=== PATIENT | male | born 1935 | race African-American/Black ===

== ENCOUNTER 2018-01-02 21:54 | Inpatient (IN) | payer MEDICARE, BC ==
[2018-01-02 22:47] LABS: #Basophils 0.1 thou/uL (0.0-0.2); #Eosinphils 0.3 thou/uL (0.0-0.7); #Monocytes 0.6 thou/uL (0.11-0.59); #Neutrophils 8.3 thou/uL (1.40-6.50); %Basophils 0.5 % (0.0-1.0); %Eosinophils 2.6 % (0.0-10.0); %Lymphocytes 17.4 % (21.0-51.0); %Monocytes 5.7 % (0.0-10.0); %Neutrophils 73.8 % (42.0-75.0); Hemoglobin 12.6 g/dL (14.0-18.0); Mean Corpuscular HGB CONC 31.5 g/dL (32.0-36.0); Mean Corpuscular Hemoglobin 23.6 pg (27.0-31.0); Mean Corpuscular Volume 74.8 fl (80.0-94.0); Platelet Count 237 thou/uL (130-400); RBC Distribution Width 14.1 % (11.5-14.5); Red Blood Cell (RBC) Count 5.33 mill/uL (4.70-6.10); White Blood Cell (WBC) Count 11.2 thou/uL (4.8-10.8)
[2018-01-02 22:58] LABS: ALT (SGPT) 20 U/L (8-55); AST (SGOT) 28 U/L (5-34); Alkaline Phosphatase 83 U/L (40-150); Anion Gap 14 mmol/L (10-20); BUN (Urea Nitrogen) 24 mg/dL (8.4-25.7); Bilirubin, Total 0.5 mg/dL (0.2-1.2); CK (CPK) 387 U/L (30-200); Calc. Creatinine Clearance 0 mL/min (70-130); Calcium 9.6 mg/dL (7.8-10.44); Carbon Dioxide 27 mmol/L (23-31); Chloride 99 mmol/L (98-107); Estimated GFR-MDRD Greater than 90; Globulin 3.7 g/dL (2.4-3.5); Glucose 110 mg/dL (83-110); Potassium 4.4 mmol/L (3.5-5.1); Protein, Total 7.7 g/dL (5.8-8.1); Sodium 136 mmol/L (136-145)
[2018-01-02 23:01] LABS: CKMB 3.6 ng/mL (0-6.6); Troponin I Less than 0.010 ng/mL (< 0.028)
--- NOTE | 2018-01-02 23:02 | CT ---
NONCONTRAST CT HEAD: 01/02/18 HISTORY: Altered mental status, confusion. COMPARISON: 03/09/17. FINDINGS: Again noted are chronic small vessel ischemic changes and cerebral volume loss, overall similar to th e prior exam. There is no evidence of an acute infarction, hemorrhage, mass effect, or midline shift . Ventricular system is normal in size, shape and position for the degree of sulcal atrophy. There rodriguez s been no significant interval change from the prior exam. IMPRESSION: 1. No acute intracranial abnormalities demonstrated. 2. Stable chronic small vessel ischemic changes and cerebral volume loss. POS: [facility]
[2018-01-02] MEDS ORDERED: Piperacillin/Tazobactam 3.375 GM in Sodium Chloride 0.9% 100 ML IVPB SCH (23:15)
[2018-01-03 00:05] LABS: Bilirubin Negative (Negative); Blood, Urine Negative (Negative); Clarity CLEAR (Clear); Glucose, Urine (Dipstick) Negative (Negative); Leukocyte Negative (Negative); Nitrite Negative (Negative); Protein, Urine (Dipstick) Negative (Neg-Trace); pH, Urine 7.5 (5.0-9.0)
[2018-01-03] MEDS ORDERED: Sodium Chloride 0.9% 1,000 ML IV SCH (04:00)
[2018-01-03] MEDS ORDERED: Ondansetron HCl/PF 4 MG/2 ML Vial IVP PRN (04:00)
[2018-01-03] MEDS ORDERED: Ondansetron ODT 4 MG TAB SL PRN (04:00)
[2018-01-03 05:02] VITALS: BMI 26.4
[2018-01-03] MEDS ORDERED: Clindamycin/D5W 900 MG in Premix Bag 1 BAG IVPB SCH (06:00)
[2018-01-03] MEDS: Piperacillin/Tazobactam 4.5 GM in Sodium Chloride 0.9% 100 ML IVPB SCH ×2 (06:21→12:52)
--- NOTE | 2018-01-03 09:40 | ULT ---
RIGHT UPPER EXTREMITY VENOUS DOPPLER: Date: 01/03/18 PROVIDED CLINICAL HISTORY: Right arm pain and swelling. FINDINGS: Dumont scale and color Doppler sonography with spectral analysis performed of the right jugular, subcla vian, axillary, brachial, and basilic veins. The proximal right cephalic vein is nonvisualized. The m id to distal right cephalic vein appear normal. IMPRESSION: No sonographic evidence for right upper extremity venous thrombosis. POS: [facility]
--- NOTE | 2018-01-03 09:47 | RAD ---
PORTABLE CHEST; Date: 01/03/18 PROVIDED CLINICAL HISTORY: Altered mental status. FINDINGS: Comparison with 03/11/17. Cardiac and mediastinal silhouette is within normal limits. Lungs appear clear. No pleural fluid or p neumothorax apparent. IMPRESSION: No evidence for an acute cardiopulmonary process. POS: [facility]
[2018-01-03] MEDS ORDERED: Vancomycin HCl 1 GM in Premix Bag 1 BAG IVPB SCH (13:00)
[2018-01-03] MEDS ORDERED: Guaifenesin DM 100-10/5 ML UDCUP PO PRN (13:26)
[2018-01-03] MEDS ORDERED: Acetaminophen 650 MG Suppository PR PRN (13:26)
[2018-01-03] MEDS: Sodium Chloride 0.9% 1,000 ML IV SCH (14:32)
--- NOTE | 2018-01-03 17:08 | HP ---
REASON FOR ADMISSION: Dehydration, acute encephalopathy, cellulitis. HISTORY OF PRESENT ILLNESS: Please note majority of this history is obtained by talking to ER physician and patient's daughter as the patient is not a very good historian. He was apparently brought to emergency room as he was getting more confused. This happened over the evening and Friday it got worse and patient was finally brought to emergency room. Per daughter, he was not complaining of any cough or expectoration. No fever at home. His right leg was more red and swollen than before. Normally, he is oriented, ambulates by himself and does all his activities of daily living. PAST MEDICAL/SURGICAL HISTORY: Hypertension, diabetes mellitus type 2, dyslipidemia, osteoarthritis, appendectomy, cervical decompressive laminectomy. PERSONAL HISTORY: Does not abuse alcohol or drugs. No history of smoking. FAMILY HISTORY: Cannot be obtained as patient is not oriented. REVIEW OF SYSTEMS: Cannot be obtained as patient is not oriented. CURRENT MEDICATIONS: Patient is on colchicine 0.6 mg p.o. twice daily, aspirin 81 mg p.o. daily, Colace 100 mg p.o. twice daily, lisinopril 10 mg daily, metformin 500 mg p.o. daily, metoprolol with hydrochlorothiazide extended release 1 tab daily. ALLERGIES: No known drug allergies. PHYSICAL EXAMINATION: GENERAL: The patient is an 82-year-old male who is currently not in any acute distress. VITAL SIGNS: Blood pressure 146/70, pulse 86 per minute, respiratory rate 18 per minute, temperature 99.5 degrees on arrival, saturating 96% on room air. NECK: Supple, no elevated JVD. HEENT: Eyes, extraocular muscles intact. Pupils reacting to light. Oral cavity, mucous membranes are dry. No exudates or congestion. CARDIOVASCULAR: S1, S2 heard. Regular rhythm. RESPIRATORY: Air entry 1+ bilaterally. No rales or rhonchi. ABDOMEN: Soft, bowel sounds heard. No tenderness, rigidity or guarding. EXTREMITIES: Right lower extremity, there are multiple abrasions seen and there is mild erythema to the leg. No calf tenderness. VASCULAR SYSTEM: Peripheral pulses 1+ bilateral, no ischemic ulcerations or gangrene. CENTRAL NERVOUS SYSTEM: No focal deficits seen. Patient has chronic right upper extremity weakness per family. He moves all the other three extremities well. No gross facial nerve deficits seen. Has small muscle atrophy of both hands. PSYCHIATRIC: Cannot be accurately assessed as patient is not oriented at present. No obvious hallucinations seen at bedside. LABORATORY AND X-RAY FINDINGS: CT brain done shows no acute intracranial abnormalities. Chest x-ray done shows no acute cardiopulmonary abnormalities. Right upper extremity ultrasound venous Doppler done shows no evidence of DVT. UA, there are no signs of infection. CK level is 387. Troponin I less than 0.01. Albumin is 4, BUN is 24, creatinine 0.9. Electrolytes stable. White count of 11, H&H 12 and 39, platelet count 237, MCV 74 with 73% neutrophils. EKG done shows normal sinus rhythm at 94 beats per minute. There is Q-wave seen in V1, V2, V3 with poor R-wave progression. CLINICAL IMPRESSION AND PLAN: The patient will be admitted to medical floor for acute encephalopathy, moderate dehydration likely right lower extremity cellulitis with temperature of 99.5 degrees on arrival. The patient will be on vancomycin and Zosyn and gentle hydration with normal saline at 80 mL per hour. Once patient is more awake, we will reinstitute all his home medications. We will also obtain PT, OT evaluations and speech evaluations as well. Blood and urine cultures have been obtained in the ER and will follow up on the results. We will continue to closely monitor him on medical floor. CODE STATUS: The patient is FULL CODE at present. MTDD
[2018-01-03] MEDS: Piperacillin/Tazobactam 3.375 GM in Sodium Chloride 0.9% 100 ML IVPB SCH ×2 (17:32→23:19)
[2018-01-03] MEDS: Acetaminophen 325 MG TAB PO PRN (20:03)
[2018-01-03] MEDS: Famotidine 20 MG TAB PO SCH (20:03)
[2018-01-03] MEDS: Docusate 100 MG CAP PO SCH (20:04)
[2018-01-03] MEDS ORDERED: traMADol HCl 50 MG TAB PO SCH (23:15)
[2018-01-04] MEDS: Sodium Chloride 0.9% 1,000 ML IV SCH ×2 (03:42→12:34)
[2018-01-04 05:02] LABS: #Basophils 0.1 thou/uL (0.0-0.2); #Eosinphils 0.6 thou/uL (0.0-0.7); #Monocytes 0.7 thou/uL (0.11-0.59); #Neutrophils 2.8 thou/uL (1.40-6.50); %Eosinophils 7.8 % (0.0-10.0); %Lymphocytes 42.5 % (21.0-51.0); %Monocytes 10.1 % (0.0-10.0); %Neutrophils 38.7 % (42.0-75.0); Mean Corpuscular HGB CONC 31.6 g/dL (32.0-36.0); Mean Corpuscular Hemoglobin 23.6 pg (27.0-31.0); Mean Corpuscular Volume 74.6 fl (80.0-94.0); Mean Platelet Volume 7.1 fL (7.4-10.4); Platelet Count 192 thou/uL (130-400); RBC Distribution Width 14.1 % (11.5-14.5); Red Blood Cell (RBC) Count 4.23 mill/uL (4.70-6.10); White Blood Cell (WBC) Count 7.1 thou/uL (4.8-10.8)
[2018-01-04] MEDS: Piperacillin/Tazobactam 3.375 GM in Sodium Chloride 0.9% 100 ML IVPB SCH ×3 (05:12→17:45)
[2018-01-04 05:22] LABS: Anion Gap 10 mmol/L (10-20); BUN (Urea Nitrogen) 21 mg/dL (8.4-25.7); Calc. Creatinine Clearance 62 mL/min (70-130); Calcium 8.6 mg/dL (7.8-10.44); Carbon Dioxide 25 mmol/L (23-31); Chloride 109 mmol/L (98-107); Estimated GFR-MDRD Greater than 90; Glucose 83 mg/dL (83-110); Potassium 3.8 mmol/L (3.5-5.1); Sodium 140 mmol/L (136-145)
[2018-01-04] MEDS ORDERED: Vancomycin HCl 1 GM in Premix Bag 1 BAG IVPB SCH (09:00)
[2018-01-04] MEDS: Enoxaparin Sodium 40 MG/0.4 ML SYRINGE SC SCH (10:13)
[2018-01-04] MEDS: Famotidine 20 MG TAB PO SCH ×2 (10:14→21:43)
[2018-01-04] MEDS: Docusate 100 MG CAP PO SCH ×2 (10:14→21:43)
--- NOTE | 2018-01-04 11:23 | PDOC.PN ---
- Subjective Encounter Start Date: 01/04/18 Encounter Start Time: 08:20 Subjective: awake, follows verbal stimuli -: is deconditioned and is unable to get up by self - Objective Resuscitation Status: Resuscitation Status FULL:Full Resuscitation MAR Reviewed: Yes Vital Signs & Weight: Vital Signs (12 hours) Temp Pulse Resp BP BP Pulse Ox 01/04/18 07:35 98.3 F 79 18 133/62 95 01/04/18 04:02 98.5 F 80 18 111/55 L 96 01/03/18 23:54 99.2 F 80 20 93/52 L 94 L Weight Weight 163 lb 6.4 oz I&O: 01/03/18 01/04/18 01/05/18 06:59 06:59 06:59 Intake Total 450 800 Output Total 0 Balance 450 800 Result Diagrams: 01/04/18 04:48 01/04/18 04:48 Additional Labs: Accuchecks 01/04/18 01/04/18 01/03/18 10:44 05:13 20:12 POC Glucose 143 H 89 148 H 01/03/18 01/03/18 16:30 11:06 POC Glucose 108 101 Phys Exam - Physical Examination HEENT: PERRLA, moist MMs Neck: no JVD, supple Respiratory: no wheezing, no rales Cardiovascular: RRR, no significant murmur Gastrointestinal: soft, non-tender, positive bowel sounds Musculoskeletal: no edema, pulses present Neurological: non-focal, moves all 4 limbs Psychiatric: A&O x 3 Dx/Plan (1) Acute encephalopathy Code(s): G93.40 - ENCEPHALOPATHY, UNSPECIFIED Status: Acute (2) Cellulitis of right leg Code(s): L03.115 - CELLULITIS OF RIGHT LOWER LIMB Status: Acute Comment: mild (3) Cervical radiculopathy Code(s): M54.12 - RADICULOPATHY, CERVICAL REGION Status: Chronic (4) Chronic anemia Code(s): D64.9 - ANEMIA, UNSPECIFIED Status: Chronic (5) Dementia Code(s): F03.90 - UNSPECIFIED DEMENTIA WITHOUT BEHAVIORAL DISTURBANCE Status: Chronic Qualifiers: Dementia type: unspecified type (6) HTN (hypertension) Code(s): I10 - ESSENTIAL (PRIMARY) HYPERTENSION Status: Chronic Qualifiers: Hypertension type: essential hypertension - Plan PT to mobilize as tolerated -: dc vanc, is on zosyn -: [place] cultures are -ve so far -: decrease iv fluids to 50/hr -: will need placement if family agrees * . Review of Systems - Medications/Allergies Allergies/Adverse Reactions: Allergies Allergy/AdvReac Type Severity Reaction Status Date / Time No Known Drug Allergies Allergy Verified 01/03/18 06:00 Medications: Current Medications Acetaminophen (Tylenol) 650 mg PO Q4H PRN PRN Reason: Headache/Fever or Pain Last Admin: 01/03/18 20:03 Dose: 650 mg Acetaminophen (Tylenol) 650 mg [place] Q4H PRN PRN Reason: Headache/Fever or Pain Docusate Sodium (Colace) 100 mg PO BID [facility] Last Admin: 01/04/18 10:14 Dose: 100 mg Enoxaparin Sodium (Lovenox) 40 mg SC 0900 [facility] Last Admin: 01/04/18 10:13 Dose: 40 mg Famotidine (Pepcid) 20 mg PO BID [facility] Last Admin: 01/04/18 10:14 Dose: 20 mg Guaifenesin/Dextromethorphan (Robitussin Dm) 15 ml PO Q4H PRN PRN Reason: Cough Sodium Chloride (Normal Saline 0.9%) 1,000 mls @ 80 mls/hr IV .[id number] [facility] Last Admin: 01/04/18 03:42 Dose: 1,000 mls Piperacillin Sod/Tazobactam (Sod 3.375 gm/ Sodium Chloride) 100 mls @ 200 mls/ hr IVPB Q6HR [facility] Last Admin: 01/04/18 05:12 Dose: 100 mls Vancomycin HCl 1 gm/ Device 200 mls @ 200 mls/hr IVPB DAILY [facility] Last Admin: 01/04/18 10:13 Dose: 200 mls
[2018-01-05] MEDS: Acetaminophen 325 MG TAB PO PRN ×2 (00:10→21:06)
[2018-01-05] MEDS: Piperacillin/Tazobactam 3.375 GM in Sodium Chloride 0.9% 100 ML IVPB SCH ×3 (00:10→12:31)
[2018-01-05] MEDS: Sodium Chloride 0.9% 1,000 ML IV SCH (00:11)
[2018-01-05] MEDS: Enoxaparin Sodium 40 MG/0.4 ML SYRINGE SC SCH (08:00)
[2018-01-05] MEDS: Famotidine 20 MG TAB PO SCH ×2 (08:00→21:03)
[2018-01-05] MEDS: Docusate 100 MG CAP PO SCH ×3 (08:00→21:04)
--- NOTE | 2018-01-05 12:25 | PDOC.PN ---
- Subjective Encounter Start Date: 01/05/18 Encounter Start Time: 12:00 Subjective: awake, not in distress - Objective MAR Reviewed: Yes Vital Signs & Weight: Vital Signs (12 hours) Temp Pulse Resp BP BP Pulse Ox 01/05/18 08:00 98.1 F 74 16 97 01/05/18 07:47 98.1 F 74 16 153/71 H 97 01/05/18 04:00 97.9 F 71 18 149/81 H 99 01/05/18 01:25 98.6 F 76 20 94 L 01/05/18 01:20 98.6 F 76 20 133/76 94 L Weight Admit Weight 163 lb 6.4 oz Weight 163 lb 6.4 oz I&O: 01/04/18 01/05/18 01/06/18 06:59 06:59 06:59 Intake Total 300 60 Balance 300 60 Result Diagrams: 01/04/18 04:48 01/04/18 04:48 Additional Labs: Accuchecks 01/05/18 01/04/18 01/04/18 05:01 22:47 17:17 POC Glucose 98 135 H 154 H Phys Exam - Physical Examination HEENT: PERRLA, moist MMs Neck: no JVD, supple Respiratory: no wheezing, no rales Cardiovascular: RRR, no significant murmur Gastrointestinal: soft, non-tender, positive bowel sounds Musculoskeletal: no edema, pulses present Neurological: non-focal moves all extremities except right UE which is chronic Dx/Plan (1) Acute encephalopathy Code(s): G93.40 - ENCEPHALOPATHY, UNSPECIFIED Status: Resolved (2) Cellulitis of right leg Code(s): L03.115 - CELLULITIS OF RIGHT LOWER LIMB Status: Acute Comment: mild (3) Cervical radiculopathy Code(s): M54.12 - RADICULOPATHY, CERVICAL REGION Status: Chronic (4) Chronic anemia Code(s): D64.9 - ANEMIA, UNSPECIFIED Status: Chronic (5) Dementia Code(s): F03.90 - UNSPECIFIED DEMENTIA WITHOUT BEHAVIORAL DISTURBANCE Status: Chronic Qualifiers: Dementia type: unspecified type (6) HTN (hypertension) Code(s): I10 - ESSENTIAL (PRIMARY) HYPERTENSION Status: Chronic Qualifiers: Hypertension type: essential hypertension - Plan Has chronic physical deconditioning -: unable to reach family with any of the phone # listed on [facility] -: dc plan is to either home with HH/snf per family advice -: oral levaquin, home meds for htn * . Review of Systems - Medications/Allergies Allergies/Adverse Reactions: Allergies Allergy/AdvReac Type Severity Reaction Status Date / Time No Known Drug Allergies Allergy Verified 01/03/18 06:00 Medications: Current Medications Acetaminophen (Tylenol) 650 mg PO Q4H PRN PRN Reason: Headache/Fever or Pain Last Admin: 01/05/18 00:10 Dose: 650 mg Acetaminophen (Tylenol) 650 mg [place] Q4H PRN PRN Reason: Headache/Fever or Pain Docusate Sodium (Colace) 100 mg PO BID [facility] Last Admin: 01/05/18 08:00 Dose: 100 mg Enoxaparin Sodium (Lovenox) 40 mg SC 0900 [facility] Last Admin: 01/05/18 08:00 Dose: 40 mg Famotidine (Pepcid) 20 mg PO BID [facility] Last Admin: 01/05/18 08:00 Dose: 20 mg Guaifenesin/Dextromethorphan (Robitussin Dm) 15 ml PO Q4H PRN PRN Reason: Cough Piperacillin Sod/Tazobactam (Sod 3.375 gm/ Sodium Chloride) 100 mls @ 200 mls/ hr IVPB Q6HR [facility] Last Admin: 01/05/18 05:51 Dose: 100 mls Sodium Chloride (Normal Saline 0.9%) 1,000 mls @ 50 mls/hr IV .Q20H [facility] Last Admin: 01/05/18 00:11 Dose: 1,000 mls
[2018-01-05] MEDS: Colchicine 0.6 MG TAB PO SCH (21:03)
[2018-01-06] MEDS ORDERED: metFORMIN 500 MG TAB PO SCH (08:00)
[2018-01-06] MEDS ORDERED: METOPROLOL SU PO SCH (09:00)
[2018-01-06] MEDS ORDERED: Lisinopril 10 MG TAB PO SCH (09:00)
[2018-01-06] MEDS ORDERED: Saccharomyces boulardii 250 MG CAP PO SCH (09:00)
[2018-01-06] MEDS ORDERED: HYDROCHLOROTHIAZ PO SCH (09:00)
[2018-01-06] MEDS ORDERED: Hydrochlorothiazide 25 MG TAB PO SCH (09:00)
[2018-01-06] MEDS ORDERED: [UNRECOGNIZED DRUG - OTHER] PO SCH (09:00)
[2018-01-06] MEDS: Famotidine 20 MG TAB PO SCH (09:38)
[2018-01-06] MEDS: Colchicine 0.6 MG TAB PO SCH (09:38)
[2018-01-06] MEDS: Enoxaparin Sodium 40 MG/0.4 ML SYRINGE SC SCH (09:39)
[2018-01-06] MEDS: Docusate 100 MG CAP PO SCH (09:39)
[2018-01-06 11:10] VITALS: BP 157/77; TEMP 98.7
--- NOTE | 2018-01-06 11:42 | PDOC.PN ---
- Subjective Encounter Start Date: 01/06/18 Encounter Start Time: 08:50 Subjective: awake, not in distress - Objective MAR Reviewed: Yes Vital Signs & Weight: Vital Signs (12 hours) Temp Pulse Resp BP BP Pulse Ox 01/06/18 11:09 98.7 F 99 16 157/77 H 95 01/06/18 09:40 150/79 H 01/06/18 08:00 98.3 F 93 16 96 01/06/18 07:45 98.3 F 93 16 149/71 H 01/06/18 00:38 99.4 F 103 H 20 177/78 H 96 Weight Admit Weight 163 lb 6.4 oz Weight 163 lb 6.4 oz I&O: 01/05/18 01/06/18 01/07/18 06:59 06:59 06:59 Intake Total 60 1420 Balance 60 1420 Result Diagrams: 01/04/18 04:48 01/04/18 04:48 Additional Labs: Accuchecks 01/06/18 01/06/18 01/05/18 05:09 01:04 20:18 POC Glucose 109 135 H 119 H 01/05/18 01/05/18 16:29 12:05 POC Glucose 109 97 Phys Exam - Physical Examination HEENT: PERRLA, moist MMs Neck: no JVD, supple Respiratory: no wheezing, no rales Cardiovascular: RRR, no significant murmur Gastrointestinal: soft, non-tender, positive bowel sounds Musculoskeletal: no edema, pulses present at baseline, no ac focal signs Dx/Plan (1) Acute encephalopathy Code(s): G93.40 - ENCEPHALOPATHY, UNSPECIFIED Status: Resolved (2) Cellulitis of right leg Code(s): L03.115 - CELLULITIS OF RIGHT LOWER LIMB Status: Acute Comment: mild (3) Cervical radiculopathy Code(s): M54.12 - RADICULOPATHY, CERVICAL REGION Status: Chronic (4) Chronic anemia Code(s): D64.9 - ANEMIA, UNSPECIFIED Status: Chronic (5) Dementia Code(s): F03.90 - UNSPECIFIED DEMENTIA WITHOUT BEHAVIORAL DISTURBANCE Status: Chronic Qualifiers: Dementia type: unspecified type (6) HTN (hypertension) Code(s): I10 - ESSENTIAL (PRIMARY) HYPERTENSION Status: Chronic Qualifiers: Hypertension type: essential hypertension - Plan hemostable -: may dc home with HH per families wishes, they dont want placement -: levaquin for 4 more days * . Review of Systems - Medications/Allergies Allergies/Adverse Reactions: Allergies Allergy/AdvReac Type Severity Reaction Status Date / Time No Known Drug Allergies Allergy Verified 01/03/18 06:00 Medications: Current Medications Acetaminophen (Tylenol) 650 mg PO Q4H PRN PRN Reason: Headache/Fever or Pain Last Admin: 01/05/18 21:06 Dose: 650 mg Acetaminophen (Tylenol) 650 mg [place] Q4H PRN PRN Reason: Headache/Fever or Pain Aspirin (Aspirin Chewable) 81 mg PO DAILY [facility] Last Admin: 01/06/18 09:38 Dose: 81 mg Colchicine (Colcrys) 0.6 mg PO BID [facility] Last Admin: 01/06/18 09:38 Dose: 0.6 mg Docusate Sodium (Colace) 100 mg PO BID [facility] Last Admin: 01/06/18 09:39 Dose: Not Given Enoxaparin Sodium (Lovenox) 40 mg SC 0900 [facility] Last Admin: 01/06/18 09:39 Dose: 40 mg Famotidine (Pepcid) 20 mg PO BID [facility] Last Admin: 01/06/18 09:38 Dose: 20 mg Guaifenesin/Dextromethorphan (Robitussin Dm) 15 ml PO Q4H PRN PRN Reason: Cough Hydrochlorothiazide (Hydrochlorothiazide) 12.5 mg PO DAILY [facility] Last Admin: 01/06/18 09:38 Dose: 12.5 mg Levofloxacin (Levaquin) 500 mg PO 0600 [facility] Last Admin: 01/06/18 05:30 Dose: 500 mg Lisinopril (Zestril) 10 mg PO DAILY [facility] Last Admin: 01/06/18 09:40 Dose: 10 mg Metformin HCl (Glucophage) 500 mg PO QAM-WM [facility] Last Admin: 01/06/18 09:40 Dose: 500 mg Metoprolol Succinate (Toprol Xl) 100 mg PO DAILY [facility] Last Admin: 01/06/18 09:38 Dose: 100 mg Saccharomyces Boulardii (Florastor) 250 mg PO DAILY [facility] Last Admin: 01/06/18 09:38 Dose: 250 mg
--- NOTE | 2018-01-07 09:39 | DIS ---
DATE OF ADMISSION: 01/03/2018 DATE OF DISCHARGE: 01/06/2018 DISCHARGE DISPOSITION: To home with home health. PRIMARY DISCHARGE DIAGNOSES: Acute encephalopathy, resolved; right leg cellulitis, resolving which i s very mild. SECONDARY DISCHARGE DIAGNOSES: History of cervical radiculopathy with chronic weakness, chronic anem ia, dementia, hypertension. PROCEDURES DONE DURING HOSPITALIZATION: The patient has had right upper extremity venous Doppler don e, which did not show any thrombus. CT brain showed no acute intracranial abnormalities. Chest x-ra y done showed no acute cardiopulmonary process. Blood cultures x2, no growth. Urine culture, no parish wth. H&H was 10 and 31, platelet count 192, MCV 74, BUN and creatinine was 21 and 0.9. One set of c ardiac enzymes are negative. DISCHARGE MEDICATIONS: Levaquin 500 mg p.o. daily for another 4 days, aspirin 81 mg p.o. daily, colc hicine 0.6 mg p.o. twice daily p.r.n. for gout flareup, Colace 100 mg p.o. twice daily, lisinopril 10 mg p.o. daily, metformin 500 mg p.o. daily, metoprolol with hydrochlorothiazide 100/12.5 mg p.o. johnny ly, Florastor 250 mg p.o. daily for 10 days. ALLERGIES: No known drug allergies. DISCHARGE PLAN: The patient is being discharged home with home health as his family has declined otilio cement. BRIEF COURSE DURING HOSPITALIZATION: Patient initially got admitted on the after family brought him for altered mental state. He was found to be in mild to moderate dehydration with mild right lo wer extremity cellulitis. Initial workup including CT brain, chest x-ray, and right upper extremity Dopplers were all negative. The patient was gently hydrated and was placed on Zosyn and vancomycin i nitially. He had a temperature of 99.5 degrees on arrival. Twenty-four hours into hospitalization, patient's encephalopathy started to resolve. At the time of discharge, he is at his baseline cogniti ve status. Please note, the patient has underlying dementia. Patient is chronically deconditioned d ue to cervical radiculopathy. Family was offered placement, but they have declined and would like to take him home with home health, PT and nursing. This is being arranged with case management. Sajan dial see a [id number] documentation for the day of discharge. He needs to continue Levaquin for anoth er 4 days.
== END 2018-01-06 16:47 | disposition home health service (06) | DRG 602 ==
LOC: ERS 21:54 → 2SE 01-03 03:39 → OBSVTOIN 01-03 13:26 → T4-B 01-05 01:26
PROVIDERS: ADMIT Internal Medicine; ATTEND Internal Medicine
DX: L03.115 Cellulitis of right lower limb (principal); G93.40 Encephalopathy, unspecified; D64.9 Anemia, unspecified; E11.9 Type 2 diabetes mellitus without complications; E86.0 Dehydration; F03.90 Unspecified dementia, unspecified severity, without behavioral disturbance, psychotic disturbance, mood disturbance, and anxiety; I10 Essential (primary) hypertension; M54.12 Radiculopathy, cervical region
CPT/HCPCS: 36415; 36416; 51701; 70450; 71045; 80048; 80053; 81003; 82553; 84484; 85025; 87040; 87086; 93005; 96365; 96366; 96367; G8978-GP-CL; G8979-GP-CJ; G8987-GO-CM; G8988-GO-CK; G8996-GN-CI; G8997-GN-CH; J1650; J2543; J3370; J3490; J7050

== ENCOUNTER 2018-04-16 15:25 | Inpatient (IN) | payer MEDICARE, BC ==
[2018-04-16 16:49] LABS: Hemoglobin 8.8 g/dL (14.0-18.0); Mean Corpuscular HGB CONC 30.6 g/dL (32.0-36.0); Mean Corpuscular Hemoglobin 22.8 pg (27.0-31.0); Mean Corpuscular Volume 74.7 fL (78.0-98.0); Mean Platelet Volume 6.4 fL (7.4-10.4); Platelet Count 425 thou/uL (130-400); RBC Distribution Width 13.7 % (11.5-14.5); Red Blood Cell (RBC) Count 3.85 mill/uL (4.70-6.10); White Blood Cell (WBC) Count 20.6 thou/uL (4.8-10.8)
[2018-04-16 17:03] LABS: ALT (SGPT) 30 U/L (8-55); AST (SGOT) 31 U/L (5-34); Albumin 3.1 g/dL (3.4-4.8); Alkaline Phosphatase 73 U/L (40-150); Anion Gap 17 mmol/L (10-20); BUN (Urea Nitrogen) 31 mg/dL (8.4-25.7); Bilirubin, Total 0.4 mg/dL (0.2-1.2); Calc. Creatinine Clearance 0 mL/min (70-130); Calcium 9.2 mg/dL (7.8-10.44); Carbon Dioxide 21 mmol/L (23-31); Chloride 103 mmol/L (98-107); Estimated GFR-MDRD Greater than 90; Globulin 3.8 g/dL (2.4-3.5); Glucose 195 mg/dL (83-110); Potassium 3.4 mmol/L (3.5-5.1); Protein, Total 6.9 g/dL (5.8-8.1); Sodium 138 mmol/L (136-145)
[2018-04-16 17:18] LABS: Anisocytosis SLIGHT = 6-15 cells (100X) (0-5/hpf); Band 2 % (5-11); Eosinophils 1 % (0-10); Hypochromia SLIGHT = 6-15 cells (100X) (0-5/hpf); Lymphocytes 14 % (21-51); MDiff Complete? YES; Microcytosis SLIGHT = 6-15 cells (100X) (0-5/hpf); Monocytes 5 % (0-10); Neutrophil 78 % (42-75); PLT Morphology Comment Appears Increased
[2018-04-16] MEDS ORDERED: Piperacillin/Tazobactam 3.375 GM VIAL ONE (17:56)
[2018-04-16] MEDS ORDERED: Ondansetron HCl/PF 4 MG/2 ML Vial IVP PRN (20:04)
[2018-04-16] MEDS ORDERED: VANCOMYCIN IVPB PRN (20:09)
[2018-04-16] MEDS ORDERED: HumaLOG 300 UNITS/3 ML VIAL SC PRN (21:18)
[2018-04-16] MEDS ORDERED: Dextrose 50% Abboject 50 ML SYRINGE SLOW IVP PRN (21:18)
[2018-04-16] MEDS ORDERED: Dextrose 5% in Water 1,000 ML IV PRN (21:18)
[2018-04-16] MEDS: Docusate 100 MG CAP PO SCH (21:33)
[2018-04-16] MEDS: Sodium Chloride 0.9% 1,000 ML IV SCH (21:33)
[2018-04-16] MEDS: Colchicine 0.6 MG TAB PO SCH (21:33)
[2018-04-16 22:07] LABS: Hemoglobin 9.5 g/dL (14.0-18.0)
[2018-04-16 23:28] VITALS: BMI 24.7
--- NOTE | 2018-04-16 23:36 | HP ---
CODE STATUS: FULL CODE. TIME OF EVALUATION: 7:30 p.m. CHIEF COMPLAINT: Fever and chills. HISTORY OF PRESENT ILLNESS: This is an 83-year-old male patient with past medical history being bedb ound due to back surgeries and spinal stenosis, the patient's family is reporting that he has had cesia e pressure ulcers for a few weeks now, but once located bilaterally in both hips, they had been getti ng worse, the patient has mild odor, patient has dark skin on top of the ulcers, the symptoms have be en triggered by possible infection of the decubitus ulcers, there are no alleviating factors. The naila eric also has another pressure ulcer on the right heel. They reported that they were getting some h ome health a few weeks ago, but the home health nurse stopped coming to the house. As now, the patie nt has a history of diabetes. REVIEW OF SYSTEMS: They were reviewed with the family members at bedside, also with the patient. Co nstitutional: The patient had fever, chills, generalized weakness. Respiratory: No cough, sputum p roduction, shortness of breath. Cardiovascular: No chest pain, palpitation, shortness of breath. G astrointestinal: No nausea, vomiting, diarrhea or abdominal pain. [employer]: No dizziness, headache or f eeling lightheaded. Genitourinary: No burning on urination. Extremities: The patient has baseline mobility, there is a pressure ulcer in bilateral hips in the lateral areas, also on the sacral area, all other systems were reviewed and negative except for the findings mentioned above. PAST MEDICAL HISTORY: The patient has a history of type 2 diabetes, hypertension, osteoarthritis, go ut. PAST SURGICAL HISTORY: Appendectomy, spinal surgery, cervical surgery, lumbar surgery. FAMILY HISTORY: Patient's father has history of CHF. SOCIAL HISTORY: No alcohol, no drugs. No smoking. The patient lives with family. ALLERGIES: No known drug allergy reported. MEDICATIONS: Aspirin, metoprolol, metformin. PHYSICAL EXAMINATION: VITAL SIGNS: On presentation, blood pressure 92/52 with heart rate 112, respiratory rate 30, tempera ture 98.6, pain 0/10, oxygen saturation 94% on room air. Blood pressure improved after initial treat ment. GENERAL APPEARANCE: The patient is alert, not in acute distress. HEAD AND EYES: Normal conjunctivae. Moist oral mucosa, anicteric. NECK: No JVD. RESPIRATORY: Bilateral air entry. No rales, no wheezing. Symmetrical expansion. CARDIOVASCULAR: Normal rate, regular rhythm, no murmurs, no gallop. No edema. ABDOMEN: Soft, normal bowel sounds. MUSCULOSKELETAL: Baseline range of motion. The patient is bedbound, no unusual changes reported by family. SKIN: Warm and intact. No perineal rash except for bilateral hip area. Decubitus pressure ulcers, they are nonstageable, with black scar on the surface, surrounded by redness. Patient also has simil ar wound on the sacral area. There is another pressure ulcer on the right heel. NEUROLOGIC: Baseline sensorium, no evidence of any new focal weakness, weight loss baseline speech. Cranial nerve, sensory intact. PSYCHIATRIC: The patient is in a good mood, known CAD. LABORATORY DATA: Labs are reviewed. The patient has white count 20, RBC 3.85, hemoglobin 8.8 with M CV 74, platelet count 125. Chemistry 138, potassium 3.4, chloride 103, carbon dioxide 21, anion gap 17, BUN 31, creatinine 0.8. Lactic acid initially was 3.4. Repeat lactic acid was 6, albumin 3.1, g lobulin 3.8, albumin globulin ratio 0.8. EKG as discussed with the ER physician, sinus tachycardia with multifocal PVCs, some T-wave inversion in the lateral leads, no other acute findings. ASSESSMENT AND PLAN: The patient was placed in the hospital for the following medical condition. 1. Severe sepsis. The patient came in with low blood pressure, lactic acidosis, leukocytosis, tachy cardia, source most likely is a wound infection. The patient has been started on antibiotics and ashley l continue for now. We will follow cultures, will adjust the treatment as needed. 2. Multiple pressure ulcers, likely due to long-term bedbound status, will need wound care for asses sment, might need surgery for debridement, wounds are nonstageable. On trailing antibiotics. Follow wound care/surgery recommendations. 3. Hypokalemia. Potassium 3.4, this is mild, will replace electrolytes as needed. 4. Lactic acidosis secondary to severe sepsis, we will treat underlying condition. Hydration has be en started, however, we are limited since the patient has a history of congestive heart failure. Nee d to find the right balance for it. 5. Type 2 diabetes that is uncontrolled. The patient has a blood sugar of 195, we will place the pa tient on sliding scale. Carb controlled diet is advised. 6. Microcytic anemia. This seems to be chronic, patient has been on iron in the home that will cont inue for now. We will monitor hemoglobin, just . There is a drop in hemoglobin from 10 to 8.8 since last admission. We will repeat hemoglobin and trend. 7. Deep venous thrombosis prophylaxis.
[2018-04-16] MEDS: Piperacillin/Tazobactam 3.375 GM in Sodium Chloride 0.9% 100 ML IVPB SCH (23:43)
[2018-04-17] MEDS: Sodium Chloride 0.9% 1,000 ML IV SCH (04:19)
[2018-04-17 05:02] LABS: Hemoglobin 8.2 g/dL (14.0-18.0)
[2018-04-17 05:05] LABS: #Basophils 0.2 thou/uL (0.0-0.2); #Eosinphils 0.3 thou/uL (0.0-0.7); #Lymphocytes 4.5 thou/uL (1.20-3.40); #Monocytes 1.3 thou/uL (0.11-0.59); #Neutrophils 13.9 thou/uL (1.40-6.50); %Basophils 1.1 % (0.0-1.0); %Eosinophils 1.4 % (0.0-10.0); %Lymphocytes 22.4 % (21.0-51.0); %Monocytes 6.2 % (0.0-10.0); %Neutrophils 68.9 % (42.0-75.0); Hemoglobin 8.2 g/dL (14.0-18.0); Mean Corpuscular HGB CONC 31.1 g/dL (32.0-36.0); Mean Corpuscular Volume 74.2 fL (78.0-98.0); Mean Platelet Volume 6.4 fL (7.4-10.4); Platelet Count 409 thou/uL (130-400); RBC Distribution Width 13.6 % (11.5-14.5); Red Blood Cell (RBC) Count 3.54 mill/uL (4.70-6.10); White Blood Cell (WBC) Count 20.1 thou/uL (4.8-10.8)
[2018-04-17] MEDS: Piperacillin/Tazobactam 3.375 GM in Sodium Chloride 0.9% 100 ML IVPB SCH ×3 (05:09→17:03)
[2018-04-17 05:15] LABS: Anion Gap 14 mmol/L (10-20); BUN (Urea Nitrogen) 28 mg/dL (8.4-25.7); Calc. Creatinine Clearance 69 mL/min (70-130); Calcium 8.8 mg/dL (7.8-10.44); Carbon Dioxide 23 mmol/L (23-31); Chloride 105 mmol/L (98-107); Estimated GFR-MDRD Greater than 90; Glucose 174 mg/dL (83-110); Potassium 3.2 mmol/L (3.5-5.1); Sodium 139 mmol/L (136-145)
[2018-04-17] MEDS: Colchicine 0.6 MG TAB PO SCH ×2 (08:33→21:13)
[2018-04-17] MEDS: Docusate 100 MG CAP PO SCH ×2 (08:34→21:13)
[2018-04-17] MEDS: Enoxaparin Sodium 40 MG/0.4 ML SYRINGE SC SCH (08:34)
[2018-04-17] MEDS: Acetaminophen 325 MG TAB PO PRN (08:36)
[2018-04-17] MEDS: Saccharomyces boulardii 250 MG CAP PO SCH (08:36)
[2018-04-17] MEDS ORDERED: Lisinopril 10 MG TAB PO SCH (09:00)
[2018-04-17] MEDS ORDERED: Prevnar 13-Val Conj/PF 0.5 ML SYRINGE IM ONE (09:00)
[2018-04-17 09:49] LABS: Hemoglobin 7.6 g/dL (14.0-18.0)
[2018-04-17] MEDS ORDERED: Chloraseptic Spray 180 ml Bottle PO PRN (10:51)
[2018-04-17] MEDS ORDERED: Loratadine 10 MG TAB PO PRN (10:51)
[2018-04-17] MEDS ORDERED: Milk Of Magnesia 30 ML UDCUP PO PRN (10:51)
[2018-04-17] MEDS ORDERED: hydrALAZINE 20 MG/ML VIAL SLOW IVP PRN (10:51)
[2018-04-17] MEDS ORDERED: Artificial Tears 18 DROP/0.9 ML EA EYE PRN (10:51)
[2018-04-17] MEDS ORDERED: Loperamide HCl 2 MG CAP PO PRN (10:51)
[2018-04-17] MEDS ORDERED: Ondansetron ODT 4 MG TAB PO PRN (10:51)
[2018-04-17] MEDS ORDERED: Mag-Al 1200 mg/1200 mg/30 ML UDCUP PO PRN (10:51)
[2018-04-17] MEDS ORDERED: Eucerin (Mineral Oil/Petrolatum,White) 30 gm Jar TOP PRN (10:51)
[2018-04-17] MEDS ORDERED: Diabetic Tussin 200 MG/10 ML UDCUP PO PRN (10:51)
[2018-04-17] MEDS ORDERED: Sodium Chloride 0.65% Nasal 44 ML BOT EA NARE PRN (10:51)
--- NOTE | 2018-04-17 10:52 | PDOC.PN ---
- Subjective Encounter Start Date: 04/17/18 Encounter Start Time: 08:40 -: old records requested/rev Patient seen and examined for decubitus ulcer. No overnight events - Objective Resuscitation Status: Resuscitation Status FULL:Full Resuscitation MAR Reviewed: Yes Vital Signs & Weight: Vital Signs (12 hours) Temp Pulse Resp BP BP Pulse Ox 04/17/18 10:46 18 98 04/17/18 08:35 94/57 L 04/17/18 07:54 98.8 F 95 32 H 93/58 L 93 L 04/17/18 06:26 100.1 F H 100 18 98/58 L 99 04/17/18 00:15 99.0 F 114 H 16 142/72 H 98 I&O: 04/16/18 04/17/18 04/18/18 06:59 06:59 06:59 Intake Total 829 Balance 829 Result Diagrams: 04/17/18 09:39 04/17/18 03:52 Additional Labs: Accuchecks 04/17/18 05:19 POC Glucose 174 H Phys Exam - Physical Examination Constitutional: NAD chronically ill HEENT: PERRLA, moist MMs, sclera anicteric Neck: no JVD, supple Respiratory: no wheezing, no rales, no rhonchi Cardiovascular: RRR, no significant murmur, no rub Gastrointestinal: soft, non-tender, no distention, positive bowel sounds Musculoskeletal: no edema, pulses present Neurological: moves all 4 limbs Lymphatic: no nodes Psychiatric: normal affect Skin: no rash, normal turgor Deviation from normal: decubitus with dressing, please see wct finding for details Dx/Plan (1) Hypokalemia Code(s): E87.6 - HYPOKALEMIA Status: Acute (2) Lactic acidosis Code(s): E87.2 - ACIDOSIS Status: Acute (3) Severe sepsis Code(s): A41.9 - SEPSIS, UNSPECIFIED ORGANISM; R65.20 - SEVERE SEPSIS WITHOUT SEPTIC SHOCK Status: Acute (4) Cervical radiculopathy Code(s): M54.12 - RADICULOPATHY, CERVICAL REGION Status: Chronic (5) Dementia Code(s): F03.90 - UNSPECIFIED DEMENTIA WITHOUT BEHAVIORAL DISTURBANCE Status: Chronic (6) Gout Code(s): M10.9 - GOUT, UNSPECIFIED Status: Chronic Qualifiers: (7) HTN (hypertension) Code(s): I10 - ESSENTIAL (PRIMARY) HYPERTENSION Status: Chronic Qualifiers: (8) Microcytic anemia Code(s): D50.9 - IRON DEFICIENCY ANEMIA, UNSPECIFIED Status: Chronic (9) Pressure ulcer of ischium Code(s): L89.309 - PRESSURE ULCER OF UNSPECIFIED BUTTOCK, UNSPECIFIED STAGE Status: Chronic (10) Pressure ulcer of sacral region, stage 3 Code(s): L89.153 - PRESSURE ULCER OF SACRAL REGION, STAGE 3 Status: Chronic - Plan cont current plan of care, continue antibiotics * continue wound care * continue empiric iv vancomycin and zosyn * continue IVF with potassium * selected home medication * follow up on culture result * add jono bid, ensure tid. * add florastor * check ferritin tomorrow Review of Systems - Review of Systems Eyes: negative: Pain, Vision Change, Conjunctivae Inflammation, Eyelid Inflammation, Redness, Other ENT: negative: Ear Pain, Ear Discharge, Nose Pain, Nose Discharge, Nose Congestion, Mouth Pain, Mouth Swelling, Throat Pain, Throat Swelling, Other Respiratory: negative: Cough, Dry, Shortness of Breath, Hemoptysis, SOB with Excertion, Pleuritic Pain, Sputum, Wheezing Cardiovascular: negative: chest pain, palpitations, orthopnea, paroxysmal nocturnal dyspnea, edema, light headedness, other Gastrointestinal: negative: Nausea, Vomiting, Abdominal Pain, Diarrhea, Constipation, Melena, Hematochezia, Other Genitourinary: negative: Dysuria, Frequency, Incontinence, Hematuria, Retention , Other Musculoskeletal: negative: Neck Pain, Shoulder Pain, Arm Pain, Back Pain, Hand Pain, Leg Pain, Foot Pain, Other Other: not reliable due to his current cognitive level of deficit - Medications/Allergies Allergies/Adverse Reactions: Allergies Allergy/AdvReac Type Severity Reaction Status Date / Time No Known Drug Allergies Allergy Verified 04/16/18 22:26 Medications: Current Medications Acetaminophen (Tylenol) 650 mg PO Q4H PRN PRN Reason: Headache/Fever or Pain Last Admin: 04/17/18 08:36 Dose: 650 mg Aspirin (Aspirin Chewable) 81 mg PO DAILY [facility] Last Admin: 04/17/18 08:33 Dose: 81 mg Colchicine (Colcrys) 0.6 mg PO BID [facility] Last Admin: 04/17/18 08:33 Dose: 0.6 mg Dextrose/Water (Dextrose 50%) 25 gm SLOW IVP PRN PRN PRN Reason: Hypoglycemia Docusate Sodium (Colace) 100 mg PO BID [facility] Last Admin: 04/17/18 08:34 Dose: 100 mg Enoxaparin Sodium (Lovenox) 40 mg SC 0900 [facility] Last Admin: 04/17/18 08:34 Dose: 40 mg Glucagon (Glucagon) 1 mg IM PRN PRN PRN Reason: Hypoglycemia Piperacillin Sod/Tazobactam (Sod 3.375 gm/ Sodium Chloride) 100 mls @ 200 mls/ hr IVPB Q6HR [facility] Last Admin: 04/17/18 05:09 Dose: 100 mls Dextrose/Water (D5w) 1,000 mls @ 0 mls/hr IV .Q0M PRN; As Directed PRN Reason: Hypoglycemia Vancomycin HCl 1 gm/ Device 200 mls @ 200 mls/hr IVPB 2000 [facility] Insulin Human Lispro (Humalog) 0 units SC .MILD SLIDING SCALE PRN PRN Reason: Mild Correctional Scale Lisinopril (Zestril) 10 mg PO DAILY [facility] Last Admin: 04/17/18 08:35 Dose: Not Given Miscellaneous Medication (Pharmacy To Dose) 1 each IVPB PRN PRN PRN Reason: Pharmacy to dose Ondansetron HCl (Zofran) 4 mg IVP Q6H PRN PRN Reason: Nausea/Vomiting Last Admin: 04/16/18 23:47 Dose: 4 mg Saccharomyces Boulardii (Florastor) 250 mg PO DAILY [facility] Last Admin: 04/17/18 08:36 Dose: 250 mg
[2018-04-17] MEDS: NS 0.9% w/ 20 MEQ KCL 1,000 ML/1,000 ML BAG IV SCH ×2 (13:06→19:12)
[2018-04-17 15:26] LABS: Hemoglobin 8.1 g/dL (14.0-18.0)
[2018-04-17] MEDS: Ferrous Sulfate 325 MG TAB PO SCH (17:06)
[2018-04-17] MEDS: Vancomycin HCl 1 GM in Premix Bag 1 BAG IVPB SCH (21:12)
[2018-04-17] MEDS: Famotidine 20 MG TAB PO SCH (21:13)
[2018-04-18] MEDS: Piperacillin/Tazobactam 3.375 GM in Sodium Chloride 0.9% 100 ML IVPB SCH ×5 (00:52→23:12)
[2018-04-18] MEDS: NS 0.9% w/ 20 MEQ KCL 1,000 ML/1,000 ML BAG IV SCH ×3 (04:52→23:12)
[2018-04-18 04:56] LABS: #Basophils 0.1 thou/uL (0.0-0.2); #Eosinphils 0.4 thou/uL (0.0-0.7); #Lymphocytes 4.5 thou/uL (1.20-3.40); #Monocytes 1.2 thou/uL (0.11-0.59); #Neutrophils 12.1 thou/uL (1.40-6.50); %Basophils 0.5 % (0.0-1.0); %Eosinophils 2.2 % (0.0-10.0); %Lymphocytes 24.7 % (21.0-51.0); %Monocytes 6.4 % (0.0-10.0); %Neutrophils 66.2 % (42.0-75.0); Mean Corpuscular HGB CONC 31.1 g/dL (32.0-36.0); Mean Corpuscular Hemoglobin 23.2 pg (27.0-31.0); Mean Corpuscular Volume 74.5 fL (78.0-98.0); Mean Platelet Volume 6.3 fL (7.4-10.4); Platelet Count 371 thou/uL (130-400); RBC Distribution Width 13.8 % (11.5-14.5); Red Blood Cell (RBC) Count 3.04 mill/uL (4.70-6.10); White Blood Cell (WBC) Count 18.3 thou/uL (4.8-10.8)
[2018-04-18 05:24] LABS: Anion Gap 12 mmol/L (10-20); BUN (Urea Nitrogen) 20 mg/dL (8.4-25.7); Calc. Creatinine Clearance 86 mL/min (70-130); Calcium 8.3 mg/dL (7.8-10.44); Carbon Dioxide 24 mmol/L (23-31); Chloride 108 mmol/L (98-107); Estimated GFR-MDRD Greater than 90; Glucose 94 mg/dL (83-110); Iron 25 ug/dL (65-175); Iron Binding Capacity, Total 118 mcg/dL (261-462); Potassium 3.6 mmol/L (3.5-5.1); Sodium 140 mmol/L (136-145)
[2018-04-18] MEDS: Famotidine 20 MG TAB PO SCH ×2 (07:26→20:21)
[2018-04-18] MEDS: Enoxaparin Sodium 40 MG/0.4 ML SYRINGE SC SCH (07:26)
[2018-04-18] MEDS: Ferrous Sulfate 325 MG TAB PO SCH ×2 (07:26→17:00)
[2018-04-18] MEDS: Acetaminophen 325 MG TAB PO PRN ×2 (07:26→20:20)
[2018-04-18] MEDS: Saccharomyces boulardii 250 MG CAP PO SCH (07:26)
[2018-04-18] MEDS: Docusate 100 MG CAP PO SCH ×2 (07:27→20:20)
--- NOTE | 2018-04-18 12:12 | PDOC.PN ---
- Subjective Encounter Start Date: 04/18/18 Encounter Start Time: 08:00 Patient seen and examined. No new complaints. No overnight events - Objective Resuscitation Status: Resuscitation Status FULL:Full Resuscitation MAR Reviewed: Yes Vital Signs & Weight: Vital Signs (12 hours) Temp Pulse Resp BP BP Pulse Ox 04/18/18 10:59 98.2 F 77 16 100/54 L 97 04/18/18 08:00 98.1 F 82 16 04/18/18 07:00 98.1 F 82 16 102/61 95 04/18/18 05:04 99.0 F 75 22 H 90/47 L 92 L Weight Admit Weight 153 lb 6 oz Weight 153 lb 6 oz I&O: 04/17/18 04/18/18 04/19/18 06:59 06:59 06:59 Intake Total 829 1800 Balance 829 1800 Result Diagrams: 04/18/18 04:06 04/18/18 04:06 Additional Labs: Accuchecks 04/18/18 04/18/18 04/17/18 10:58 04:57 20:18 POC Glucose 108 99 131 H 04/17/18 16:07 POC Glucose 141 H Phys Exam - Physical Examination Constitutional: NAD HEENT: PERRLA, moist MMs, sclera anicteric Neck: no JVD, supple Respiratory: no wheezing, no rales, no rhonchi Cardiovascular: RRR, no significant murmur, no rub Gastrointestinal: soft, non-tender, no distention, positive bowel sounds Musculoskeletal: no edema, pulses present decubitus with dressing Neurological: non-focal Lymphatic: no nodes Psychiatric: normal affect Skin: no rash, normal turgor Dx/Plan (1) Hypokalemia Code(s): E87.6 - HYPOKALEMIA Status: Acute (2) Lactic acidosis Code(s): E87.2 - ACIDOSIS Status: Acute (3) Severe sepsis Code(s): A41.9 - SEPSIS, UNSPECIFIED ORGANISM; R65.20 - SEVERE SEPSIS WITHOUT SEPTIC SHOCK Status: Acute (4) Cervical radiculopathy Code(s): M54.12 - RADICULOPATHY, CERVICAL REGION Status: Chronic (5) Dementia Code(s): F03.90 - UNSPECIFIED DEMENTIA WITHOUT BEHAVIORAL DISTURBANCE Status: Chronic (6) Gout Code(s): M10.9 - GOUT, UNSPECIFIED Status: Chronic Qualifiers: (7) HTN (hypertension) Code(s): I10 - ESSENTIAL (PRIMARY) HYPERTENSION Status: Chronic Qualifiers: (8) Microcytic anemia Code(s): D50.9 - IRON DEFICIENCY ANEMIA, UNSPECIFIED Status: Chronic (9) Pressure ulcer of ischium Code(s): L89.309 - PRESSURE ULCER OF UNSPECIFIED BUTTOCK, UNSPECIFIED STAGE Status: Chronic (10) Pressure ulcer of sacral region, stage 3 Code(s): L89.153 - PRESSURE ULCER OF SACRAL REGION, STAGE 3 Status: Chronic - Plan cont current plan of care, continue antibiotics * continue vancomycin and zosyn * I spoke with wound care team and they recommend general surgery consult, as he may need debridement * today will transfuse 1 unit PRBC for low H & H * wound care and nutritional support * continue IVF * medication reviewed as below * symptomatic treatment. Review of Systems - Review of Systems ENT: negative: Ear Pain, Ear Discharge, Nose Pain, Nose Discharge, Nose Congestion, Mouth Pain, Mouth Swelling, Throat Pain, Throat Swelling, Other Respiratory: negative: Cough, Dry, Shortness of Breath, Hemoptysis, SOB with Excertion, Pleuritic Pain, Sputum, Wheezing Cardiovascular: negative: chest pain, palpitations, orthopnea, paroxysmal nocturnal dyspnea, edema, light headedness, other Gastrointestinal: negative: Nausea, Vomiting, Abdominal Pain, Diarrhea, Constipation, Melena, Hematochezia, Other Genitourinary: negative: Dysuria, Frequency, Incontinence, Hematuria, Retention , Other Musculoskeletal: negative: Neck Pain, Shoulder Pain, Arm Pain, Back Pain, Hand Pain, Leg Pain, Foot Pain, Other Other: not reliable with pt due to his level of cognitive status - Medications/Allergies Allergies/Adverse Reactions: Allergies Allergy/AdvReac Type Severity Reaction Status Date / Time No Known Drug Allergies Allergy Verified 04/16/18 22:26 Medications: Current Medications Acetaminophen (Tylenol) 650 mg PO Q4H PRN PRN Reason: Headache/Fever or Pain Last Admin: 04/18/18 07:26 Dose: 650 mg Hydrocodone Bitart/Acetaminophen ([place] 5/325) 1 tab PO Q4H PRN PRN Reason: Moderate Pain (4-6) Al Hydroxide/Mg Hydroxide (Maalox) 15 ml PO Q4H PRN PRN Reason: Heartburn or Indigestion Artificial Tears (Tears Naturale) 0 drop EA EYE PRN PRN PRN Reason: Dry Eyes Aspirin (Aspirin Chewable) 81 mg PO DAILY [facility] Last Admin: 04/18/18 07:26 Dose: 81 mg Dextrose/Water (Dextrose 50%) 25 gm SLOW IVP PRN PRN PRN Reason: Hypoglycemia Docusate Sodium (Colace) 100 mg PO BID [facility] Last Admin: 04/18/18 07:27 Dose: 100 mg Enoxaparin Sodium (Lovenox) 40 mg SC 0900 [facility] Last Admin: 04/18/18 07:26 Dose: Not Given Famotidine (Pepcid) 20 mg PO BID [facility] Last Admin: 04/18/18 07:26 Dose: 20 mg Ferrous Sulfate (Feosol) 325 mg PO BID[facility] Last Admin: 04/18/18 07:26 Dose: 325 mg Glucagon (Glucagon) 1 mg IM PRN PRN PRN Reason: Hypoglycemia Guaifenesin (Robitussin Sf) 200 mg PO Q4H PRN PRN Reason: Cough Hydralazine HCl (Apresoline) 10 mg SLOW IVP Q4H PRN PRN Reason: Systolic BP > 180 Piperacillin Sod/Tazobactam (Sod 3.375 gm/ Sodium Chloride) 100 mls @ 200 mls/ hr IVPB Q6HR [facility] Last Admin: 04/18/18 11:29 Dose: 100 mls Dextrose/Water (D5w) 1,000 mls @ 0 mls/hr IV .Q0M PRN; As Directed PRN Reason: Hypoglycemia Vancomycin HCl 1 gm/ Device 200 mls @ 200 mls/hr IVPB 2000 [facility] Last Admin: 04/17/18 21:12 Dose: 200 mls Potassium Chloride/Sodium Chloride (Ns 0.9% W/ 20 Meq Kcl) 1,000 ml in 1,000 mls @ 75 mls/hr IV .[id number] [facility] Last Admin: 04/18/18 07:27 Dose: Not Given Insulin Human Lispro (Humalog) 0 units SC .MILD SLIDING SCALE PRN PRN Reason: Mild Correctional Scale Loperamide HCl (Imodium) 2 mg PO PRN PRN PRN Reason: Diarrhea/Loose Stools Loratadine (Claritin) 10 mg PO DAILYPRN PRN PRN Reason: Sinus Symptoms Magnesium Hydroxide (Milk Of Magnesium) 30 ml PO DAILYPRN PRN PRN Reason: Constipation Mineral Oil/White Petrolatum (Eucerin Cream) 0 gm TOP BIDPRN PRN PRN Reason: Dry Skin Miscellaneous Medication (Pharmacy To Dose) 1 each IVPB PRN PRN PRN Reason: Pharmacy to dose Ondansetron HCl (Zofran) 4 mg IVP Q6H PRN PRN Reason: Nausea/Vomiting Last Admin: 04/16/18 23:47 Dose: 4 mg Ondansetron HCl (Zofran Odt) 4 mg PO Q6H PRN PRN Reason: Nausea/Vomiting Phenol (Chloraseptic [place] 180 Ml Bot) 0 ml PO PRN PRN PRN Reason: Sore Throat Saccharomyces Boulardii (Florastor) 250 mg PO DAILY [facility] Last Admin: 04/18/18 07:26 Dose: 250 mg Sodium Chloride ([place] Nasal [place] 0.65%) 0 ml EA NARE QIDPRN PRN PRN Reason: Nasal Congestion Temazepam (Restoril) 15 mg PO HSPRN PRN PRN Reason: Insomnia
--- NOTE | 2018-04-18 12:15 | EKG ---
Test Reason : Blood Pressure : / mmHG Vent. Rate : 113 BPM Atrial Rate : 113 BPM P-R Int : 128 ms QRS Dur : 086 ms QT Int : 336 ms P-R-T Axes : 055 031 255 degrees QTc Int : 460 ms Sinus tachycardia with Premature atrial complexes Septal infarct , age undetermined Abnormal ECG Confirmed by LUZ MARIA JEFFERY, GUNNER ([id number]), school photograph editor DANA PAEZ ([id number]) on 04/18/2018 12:15:44 PM Referred By: Confirmed By:GUNNER LOERA MD
[2018-04-18 20:10] LABS: Vancomycin, Trough 8.1 ug/mL
[2018-04-18] MEDS: Temazepam 15 MG CAP PO PRN (20:20)
[2018-04-18] MEDS: Vancomycin HCl 1 GM in Premix Bag 1 BAG IVPB SCH (20:20)
--- NOTE | 2018-04-18 20:52 | HP ---
HISTORY OF PRESENT ILLNESS: An 83-year-old black male patient admitted on 04/16/2018 from the emerge ncy room to hospitalist service. I have been asked to see him regarding left hip and sacral decubitu s. He has multiple decubiti on his lateral medial malleoli bilateral hips and sacrum. He is nonambu latory. He has had multiple back surgeries, spinal stenosis. He is developing pressure sores. The family was concerned and brought him to the emergency room. I have evaluated the patient. He does have a large sacral decubitus with early breakdown. There is eschar that could be debrided over the right side of the midline and this could be debrided at the [facility]. He has a left sacral decubitus with necrotic tissue that could be debrided at bedside. It ap pears that surrounding this, there is healthy tissue otherwise, he has a superficial eschar dry right hip. He has blister over his right medial foot with granulation tissue. He has a heel decubitus on the right with eschar that is dry could be observed. He has palpable pedal pulses. PAST SURGICAL HISTORY: Appendectomy, open right paramedian lower quadrant, spinal surgery for spinal stenosis, cervical surgery, lumbar surgery. PAST MEDICAL HISTORY: Type 2 diabetes mellitus, hypertension, osteoarthritis, gout, nonambulatory. SOCIAL HISTORY: Tobacco and alcohol: None. Lives with his family. The patient reports he worked f or [employer] in the past. MEDICATIONS: Aspirin, metoprolol, metformin. PHYSICAL EXAMINATION: VITAL SIGNS: Height 5 feet 6 inches, weight 153 pounds, 24 BMI, temperature 98.2, pulse 77, respirat ions 16, blood pressure 100/54. Patient has contracted lower extremities indicative and nonambulator y state. LUNGS: Clear to auscultation. CARDIAC: Regular rate and rhythm without murmur or gallop. ABDOMEN: Soft, nontender. Scar in the right lower quadrant per consistent with appendectomy history . Palpable pedal pulses, contracted knees and ankles, bilateral hip decubiti dry eschar right, necro tic tissue and subcutaneous tissue, left, probably about 6 x 8 cm in need of debridement scan could b e done at the bedside. No cellulitis, no evidence of deep infection, healthy granulation tissue surr ounding this. Sacral eschar extending midline and bilateral. To the right, there is some necrotic t issue in need of debridement, but surrounding this, there is no cellulitis. There is healthy granula tion tissue. Right heel decubitus, dry, not in need of debridement. Bilateral medial and lateral ma lleolar wound, superficial, not any debridement. LABORATORY DATA: White count 18, hemoglobin 7. Basic metabolic profile normal. ASSESSMENT AND PLAN: 1. Nonambulatory bedridden patient with multiple decubiti. We will plan bedside debridement of righ t sacral decubitus and left hip decubitus. Overall, prognosis is poor. Continued decubitive care wo uld especially support. 2. Anemia, undergoing transfusion.
[2018-04-19] MEDS: Piperacillin/Tazobactam 3.375 GM in Sodium Chloride 0.9% 100 ML IVPB SCH ×3 (05:20→16:07)
[2018-04-19 07:08] LABS: #Basophils 0.3 thou/uL (0.0-0.2); #Eosinphils 0.3 thou/uL (0.0-0.7); #Lymphocytes 4.6 thou/uL (1.20-3.40); #Monocytes 0.9 thou/uL (0.11-0.59); %Basophils 1.6 % (0.0-1.0); %Eosinophils 1.9 % (0.0-10.0); %Lymphocytes 26.6 % (21.0-51.0); %Monocytes 5.5 % (0.0-10.0); %Neutrophils 64.5 % (42.0-75.0); Hemoglobin 9.1 g/dL (14.0-18.0); Mean Corpuscular HGB CONC 31.7 g/dL (32.0-36.0); Mean Corpuscular Hemoglobin 23.9 pg (27.0-31.0); Mean Corpuscular Volume 75.3 fL (78.0-98.0); Platelet Count 420 thou/uL (130-400); RBC Distribution Width 14.5 % (11.5-14.5); Red Blood Cell (RBC) Count 3.82 mill/uL (4.70-6.10); White Blood Cell (WBC) Count 17.1 thou/uL (4.8-10.8)
[2018-04-19 07:27] LABS: Anion Gap 15 mmol/L (10-20); BUN (Urea Nitrogen) 11 mg/dL (8.4-25.7); Calc. Creatinine Clearance 92 mL/min (70-130); Calcium 8.5 mg/dL (7.8-10.44); Carbon Dioxide 19 mmol/L (23-31); Chloride 108 mmol/L (98-107); Estimated GFR-MDRD Greater than 90; Glucose 88 mg/dL (83-110); Potassium 3.5 mmol/L (3.5-5.1); Sodium 138 mmol/L (136-145); Uric Acid 3.8 mg/dL (3.5-7.2)
[2018-04-19] MEDS: Vancomycin HCl 1 GM in Premix Bag 1 BAG IVPB SCH ×2 (08:34→19:56)
[2018-04-19] MEDS: Saccharomyces boulardii 250 MG CAP PO SCH (08:35)
[2018-04-19] MEDS: Enoxaparin Sodium 40 MG/0.4 ML SYRINGE SC SCH (08:35)
[2018-04-19] MEDS: Docusate 100 MG CAP PO SCH ×2 (08:35→19:57)
[2018-04-19] MEDS: Ferrous Sulfate 325 MG TAB PO SCH ×2 (08:35→16:07)
[2018-04-19] MEDS: Polyethylene Glycol 3350 17 GM Packet PO SCH (08:35)
[2018-04-19] MEDS: Famotidine 20 MG TAB PO SCH ×2 (08:35→19:56)
--- NOTE | 2018-04-19 09:02 | PDOC.PN ---
- Subjective Encounter Start Date: 04/19/18 Encounter Start Time: 07:55 Patient seen and examined for infected decubitus ulcer. No new complaints. No overnight events - Objective Resuscitation Status: Resuscitation Status FULL:Full Resuscitation MAR Reviewed: Yes Vital Signs & Weight: Vital Signs (12 hours) Temp Pulse Resp BP Pulse Ox 04/19/18 07:26 98.0 F 82 18 122/48 L 96 04/18/18 21:14 98.2 F 77 16 96 Weight Admit Weight 153 lb 6 oz Weight 153 lb 6 oz I&O: 04/18/18 04/19/18 04/20/18 06:59 06:59 06:59 Intake Total 1800 1425 Balance 1800 1425 Result Diagrams: 04/19/18 06:56 04/19/18 06:56 Additional Labs: Accuchecks 04/19/18 04/18/18 04/18/18 05:29 20:35 16:50 POC Glucose 104 108 98 04/18/18 10:58 POC Glucose 108 Phys Exam - Physical Examination Constitutional: NAD HEENT: PERRLA, moist MMs, sclera anicteric Neck: no JVD, supple Respiratory: no wheezing, no rales, no rhonchi Cardiovascular: RRR, no significant murmur, no rub Gastrointestinal: soft, non-tender, no distention, positive bowel sounds Musculoskeletal: no edema, pulses present Neurological: moves all 4 limbs Lymphatic: no nodes Psychiatric: normal affect Skin: no rash, normal turgor Deviation from normal: see WCT finding for pressure ulcer Dx/Plan (1) Severe sepsis Code(s): A41.9 - SEPSIS, UNSPECIFIED ORGANISM; R65.20 - SEVERE SEPSIS WITHOUT SEPTIC SHOCK Status: Acute Comment: due to infected decubitus ulcer (2) Pressure ulcer Code(s): L89.90 - PRESSURE ULCER OF UNSPECIFIED SITE, UNSPECIFIED STAGE Status : Acute Qualifiers: Pressure ulcer location: buttock Pressure ulcer stage: stage 4 Comment: with infection (3) Lactic acidosis Code(s): E87.2 - ACIDOSIS Status: Resolved (4) Hypokalemia Code(s): E87.6 - HYPOKALEMIA Status: Resolved (5) Cervical radiculopathy Code(s): M54.12 - RADICULOPATHY, CERVICAL REGION Status: Chronic (6) Dementia Code(s): F03.90 - UNSPECIFIED DEMENTIA WITHOUT BEHAVIORAL DISTURBANCE Status: Chronic (7) Gout Code(s): M10.9 - GOUT, UNSPECIFIED Status: Chronic Qualifiers: (8) HTN (hypertension) Code(s): I10 - ESSENTIAL (PRIMARY) HYPERTENSION Status: Chronic Qualifiers: (9) Pressure ulcer of ischium Code(s): L89.309 - PRESSURE ULCER OF UNSPECIFIED BUTTOCK, UNSPECIFIED STAGE Status: Chronic (10) Anemia Code(s): D64.9 - ANEMIA, UNSPECIFIED Status: Chronic - Plan cont current plan of care, continue antibiotics * today surgeon will try to do bedside debridement * morphin as needed for bedside wound care or procedure * medication reviewed as below * symptomatic treatment * continue vancomycin and zosyn * nutritional support * prognosis is poor * will consult ID to decide about duration and selection of antibiotics and mode of administration. Review of Systems - Review of Systems ENT: negative: Ear Pain, Ear Discharge, Nose Pain, Nose Discharge, Nose Congestion, Mouth Pain, Mouth Swelling, Throat Pain, Throat Swelling, Other Respiratory: negative: Cough, Dry, Shortness of Breath, Hemoptysis, SOB with Excertion, Pleuritic Pain, Sputum, Wheezing Cardiovascular: negative: chest pain, palpitations, orthopnea, paroxysmal nocturnal dyspnea, edema, light headedness, other Gastrointestinal: negative: Nausea, Vomiting, Abdominal Pain, Diarrhea, Constipation, Melena, Hematochezia, Other Genitourinary: negative: Dysuria, Frequency, Incontinence, Hematuria, Retention , Other Musculoskeletal: negative: Neck Pain, Shoulder Pain, Arm Pain, Back Pain, Hand Pain, Leg Pain, Foot Pain, Other Other: not reliable with pt due to his level of cognitive status - Medications/Allergies Allergies/Adverse Reactions: Allergies Allergy/AdvReac Type Severity Reaction Status Date / Time No Known Drug Allergies Allergy Verified 04/16/18 22:26 Medications: Current Medications Acetaminophen (Tylenol) 650 mg PO Q4H PRN PRN Reason: Headache/Fever or Pain Last Admin: 04/18/18 20:20 Dose: 650 mg Hydrocodone Bitart/Acetaminophen ([place] 5/325) 1 tab PO Q4H PRN PRN Reason: Moderate Pain (4-6) Al Hydroxide/Mg Hydroxide (Maalox) 15 ml PO Q4H PRN PRN Reason: Heartburn or Indigestion Artificial Tears (Tears Naturale) 0 drop EA EYE PRN PRN PRN Reason: Dry Eyes Aspirin (Aspirin Chewable) 81 mg PO DAILY [facility] Last Admin: 04/19/18 08:35 Dose: 81 mg Dextrose/Water (Dextrose 50%) 25 gm SLOW IVP PRN PRN PRN Reason: Hypoglycemia Docusate Sodium (Colace) 100 mg PO BID [facility] Last Admin: 04/19/18 08:35 Dose: 100 mg Enoxaparin Sodium (Lovenox) 40 mg SC 0900 [facility] Last Admin: 04/19/18 08:35 Dose: 40 mg Famotidine (Pepcid) 20 mg PO BID [facility] Last Admin: 04/19/18 08:35 Dose: 20 mg Ferrous Sulfate (Feosol) 325 mg PO BID[facility] Last Admin: 04/19/18 08:35 Dose: 325 mg Glucagon (Glucagon) 1 mg IM PRN PRN PRN Reason: Hypoglycemia Guaifenesin (Robitussin Sf) 200 mg PO Q4H PRN PRN Reason: Cough Hydralazine HCl (Apresoline) 10 mg SLOW IVP Q4H PRN PRN Reason: Systolic BP > 180 Piperacillin Sod/Tazobactam (Sod 3.375 gm/ Sodium Chloride) 100 mls @ 200 mls/ hr IVPB Q6HR [facility] Last Admin: 04/19/18 05:20 Dose: 100 mls Dextrose/Water (D5w) 1,000 mls @ 0 mls/hr IV .Q0M PRN; As Directed PRN Reason: Hypoglycemia Potassium Chloride/Sodium Chloride (Ns 0.9% W/ 20 Meq Kcl) 1,000 ml in 1,000 mls @ 75 mls/hr IV .[id number] [facility] Last Admin: 04/18/18 23:12 Dose: 1,000 mls Vancomycin HCl 1 gm/ Device 200 mls @ 200 mls/hr IVPB 08,1999 [facility] Last Admin: 04/19/18 08:34 Dose: 200 mls Insulin Human Lispro (Humalog) 0 units SC .MILD SLIDING SCALE PRN PRN Reason: Mild Correctional Scale Loperamide HCl (Imodium) 2 mg PO PRN PRN PRN Reason: Diarrhea/Loose Stools Loratadine (Claritin) 10 mg PO DAILYPRN PRN PRN Reason: Sinus Symptoms Magnesium Hydroxide (Milk Of Magnesium) 30 ml PO DAILYPRN PRN PRN Reason: Constipation Mineral Oil/White Petrolatum (Eucerin Cream) 0 gm TOP BIDPRN PRN PRN Reason: Dry Skin Miscellaneous Medication (Pharmacy To Dose) 1 each IVPB PRN PRN PRN Reason: Pharmacy to dose Ondansetron HCl (Zofran) 4 mg IVP Q6H PRN PRN Reason: Nausea/Vomiting Last Admin: 04/16/18 23:47 Dose: 4 mg Ondansetron HCl (Zofran Odt) 4 mg PO Q6H PRN PRN Reason: Nausea/Vomiting Phenol (Chloraseptic [place] 180 Ml Bot) 0 ml PO PRN PRN PRN Reason: Sore Throat Polyethylene Glycol (Miralax) 17 gm PO DAILY [facility] Last Admin: 04/19/18 08:35 Dose: 17 gm Saccharomyces Boulardii (Florastor) 250 mg PO DAILY [facility] Last Admin: 04/19/18 08:35 Dose: 250 mg Sodium Chloride ([place] Nasal [place] 0.65%) 0 ml EA NARE QIDPRN PRN PRN Reason: Nasal Congestion Temazepam (Restoril) 15 mg PO HSPRN PRN PRN Reason: Insomnia Last Admin: 04/18/18 20:20 Dose: 15 mg
[2018-04-19] MEDS: NS 0.9% w/ 20 MEQ KCL 1,000 ML/1,000 ML BAG IV SCH (15:12)
--- NOTE | 2018-04-19 17:13 | OP ---
PREOPERATIVE DIAGNOSIS: Sacral decubitus, left hip decubitus. POSTOPERATIVE DIAGNOSIS: Sacral decubitus, left hip decubitus. PROCEDURES: 1. Bedside debridement of large eschar, sacrum to the right of midline, 8 x 6 cm skin and subcutaneo us tissue sharply excised resectional. 2. Sharp excision of eschar 6 x 8 cm left hip, excising resection 10 blade scalpel skin, subcutaneou s tissue and fascia. 3. Decubitus extending into the left hip joint with exposed femoral head or femoral neck. Culture s ubmitted purulent material. Note, patient is bedridden, nonambulatory, contracted knees. SURGEON: Dr. Casimiro Ferris ANESTHESIA: None. DESCRIPTION OF OPERATION: Procedure is at bedside in his room. Area was prepared with alcohol and e schars sacrum to the right of midline and left hip, debrided sharply. Underlying fatty tissue excise d. There was necrotic soupy purulent material excised and evacuated. Fascia over the PIP joint was necrotic, excised exposing a portion of the femur. There was purulent material around this. This is undermined about the hip joint. Patient tolerated the procedure well. Wound Care placed a wound [facility]. Patient should be considered for hip disarticulation. This can be performed after more granulati on tissue is performed and the wound is more stable.
[2018-04-19 17:54] LABS: Hemoglobin 9.5 g/dL (14.0-18.0)
[2018-04-19] MEDS: Temazepam 15 MG CAP PO PRN (19:56)
[2018-04-19] MEDS: HYDROcodone/Acetaminophen 5/325 mg Tablet PO PRN (19:57)
--- NOTE | 2018-04-19 23:33 | CON ---
DATE OF CONSULTATION: 04/19/2018 REASON FOR CONSULTATION: Decubitus ulcer. HISTORY OF PRESENT ILLNESS: An 83-year-old patient who has a history of cervical radiculopathy with apparent paraesthesias, dementia, mobility impairment related to the above. He lives in [place] with [facility], he is pretty much bedbound and has developed progressive ulcers in the presacral regio n and right hip region as well as left hip region associated with foul odor and necrotic skin. The p atient developed fever and chills. He was brought in for evaluation and was admitted. Initial findi ngs included blood pressure 92/52, heart rate 112, temperature 98.6, O2 sat 94%. He is awake and brenda ears in any distress. Lungs are clear. Heart exam normal. Abdomen normal. He had necrotic ulcers with black eschar on the surface unstageable in the bilateral hip region and presacral region. He rodriguez s the area of deep pressure injury in the right heel. Initial white cell count 20,000, hemoglobin 8, platelets 125, creatinine 0.8. Lactic acid 3.4 and 6. The patient currently is lying on his right lateral decubitus. The patient has had bedside debridement of the ulcers and is having the negative pressure dressing applied by the wound care team. He is awake. He knows he is in [place] and [place] [facility], but could not tell me which, could not tell me the date and does not have good recollection and not to provide cogent account of his recent developments. He denies any headaches, no sore throa t, odynophagia, dysphagia, no dyspnea, no chest pain or abdominal pain. PAST MEDICAL HISTORY: Includes type 2 diabetes, hypertension, cervical myelopathy from stenosis with prior surgery elsewhere and also had lumber laminectomy with residual paraesthesias, mobility impair ment, history of hypertension, osteoarthritis, and gout. FAMILY HISTORY: Cardiomyopathy. SOCIAL HISTORY: Former smoker, lives in family. ALLERGIES: None. CURRENT MEDICATIONS: Include hydrocodone, Maalox, aspirin, dextrose, Colace, Lovenox, Pepcid, Feosol , insulin, Imodium, Claritin, Zofran, Zosyn, and vancomycin. PHYSICAL EXAMINATION: VITAL SIGNS: T-max 100.1, currently 98.3 and pulse 77, respirations 18, O2 sat 95%. SKIN: Shows the areas of debridement with negative pressure dressing cover at this time, some serosa nguineous drainage emanating from the presacral debridement area. Peripheral IV access and patient i s voiding spontaneously. No lymphadenopathy. Alopecia. HEENT: Ocular movements conjugate. Somewhat pale conjunctivae. Oral cavity with numerous missing t eeth. Remainder ones with marked decay and gum disease. NECK: Supple, no jugular distention. LUNGS: Symmetric clear breath sounds. CARDIOVASCULAR: S1, S2, regular rate with a soft aortic murmur. No S3. ABDOMEN: Soft, not distended or tender. No organomegaly or ascites. No bladder distention. GENITAL: Normal. EXTREMITIES: Pulses are 1+ in dorsalis pedis. He has got a dark deep skin injury type lesion in the right heel. Pulses are diminished in dorsalis pedis. NEUROLOGIC: His plantar responses are indifferent. He is able to wiggle his toes. His strength in upper extremities is 5/5, lower extremities is 3-4/5. He is awake, knows his name, did not know wher e he was or the date. LABORATORY AND X-RAY FINDINGS: White cell count is at 17,000, hemoglobin 9.1, MCV 75, platelets 420, 64% neutrophils, 26% lymphocytes. Sodium 138, creatinine 0.59. CRP 10.71. Vancomycin trough 8.1. Operative notes were reviewed by Dr. Ferris and this was at the bedside procedure, area prepared wit h alcohol and eschars, left and right hip and sacrum debrided sharply. Underlying fatty tissue excis ed soupy purulent material excised and evacuated. Fascia over the proximal interphalangeal necrotic, excised exposing a portion of the femur, purulent material around this, this was undermined about th e hip joint. IMAGING STUDIES: We do not have any imaging studies at this time. ASSESSMENT: 1. Dementia. 2. Cervical myelopathy secondary to spinal stenosis with paraesthesias. 3. Mobility impairment. 4. Stage IV decubitus ulcers with deep left hip decubitus ulcer with exposure, which penetrates all the way to the hip bone. 5. Neutrophilia and fever. DISCUSSION: The patient has unfortunately developed his aggressive soft tissue procedure with extens ion to the left side with involvement of the hip, I am not sure of the status of the hip bone itself. The patient will need imaging studies with a CT of pelvis to evaluate further areas of penetration of the inflammatory process and a chronic process. Cultures have been submitted and are pending. We will review of those. Continue current antimicrobial coverage for the time being. Further surgical intervention will likely be necessary. The patient will need to be transferred to a long term unit or similar setting for continuation of therapy and will need protracted antimicrobial therapy c overage. No evidence of lung or other intra-abdominal involvement at this point in time. The patien t may need colostomy placement for diversion. Review of the area of involvement.
[2018-04-20] MEDS: Piperacillin/Tazobactam 3.375 GM in Sodium Chloride 0.9% 100 ML IVPB SCH ×3 (00:19→14:25)
[2018-04-20] MEDS: NS 0.9% w/ 20 MEQ KCL 1,000 ML/1,000 ML BAG IV SCH ×2 (05:06→14:25)
[2018-04-20 07:36] LABS: Vancomycin, Trough 24.6 ug/mL
[2018-04-20] MEDS: Vancomycin HCl 1 GM in Premix Bag 1 BAG IVPB SCH (09:27)
[2018-04-20] MEDS: Ferrous Sulfate 325 MG TAB PO SCH ×2 (09:31→17:54)
[2018-04-20] MEDS: Famotidine 20 MG TAB PO SCH ×2 (09:32→20:01)
[2018-04-20] MEDS: Polyethylene Glycol 3350 17 GM Packet PO SCH (09:32)
[2018-04-20] MEDS: Enoxaparin Sodium 40 MG/0.4 ML SYRINGE SC SCH ×2 (09:32→10:39)
[2018-04-20] MEDS: Docusate 100 MG CAP PO SCH ×2 (09:32→20:01)
[2018-04-20] MEDS: Saccharomyces boulardii 250 MG CAP PO SCH (09:32)
[2018-04-20] MEDS: HYDROcodone/Acetaminophen 5/325 mg Tablet PO PRN ×2 (09:33→21:32)
--- NOTE | 2018-04-20 10:02 | PDOC.PN ---
- Subjective Encounter Start Date: 04/20/18 Encounter Start Time: 08:10 he had debridement yesterday, now has wound vac - Objective Resuscitation Status: Resuscitation Status FULL:Full Resuscitation MAR Reviewed: Yes Vital Signs & Weight: Weight Admit Weight 153 lb 6 oz Weight 153 lb 6 oz I&O: 04/19/18 04/20/18 04/21/18 06:59 06:59 06:59 Intake Total 1425 1200 Balance 1425 1200 Result Diagrams: 04/19/18 17:47 04/19/18 06:56 Additional Labs: Accuchecks 04/20/18 04/19/18 04/19/18 04:41 19:58 15:43 POC Glucose 93 126 H 117 H 04/19/18 11:23 POC Glucose 90 Phys Exam - Physical Examination Constitutional: NAD HEENT: PERRLA, moist MMs, sclera anicteric Neck: no JVD, supple Respiratory: no wheezing, no rales, no rhonchi Cardiovascular: RRR, no significant murmur, no rub Gastrointestinal: soft, non-tender, no distention, positive bowel sounds wound vac in place Musculoskeletal: no edema, pulses present Neurological: moves all 4 limbs Lymphatic: no nodes Psychiatric: normal affect Skin: no rash, normal turgor Dx/Plan (1) Severe sepsis Code(s): A41.9 - SEPSIS, UNSPECIFIED ORGANISM; R65.20 - SEVERE SEPSIS WITHOUT SEPTIC SHOCK Status: Acute Comment: due to infected decubitus ulcer (2) Pressure ulcer Code(s): L89.90 - PRESSURE ULCER OF UNSPECIFIED SITE, UNSPECIFIED STAGE Status : Acute Qualifiers: Pressure ulcer location: buttock Pressure ulcer stage: stage 4 Comment: with infection (3) Lactic acidosis Code(s): E87.2 - ACIDOSIS Status: Resolved (4) Hypokalemia Code(s): E87.6 - HYPOKALEMIA Status: Resolved (5) Cervical radiculopathy Code(s): M54.12 - RADICULOPATHY, CERVICAL REGION Status: Chronic (6) Dementia Code(s): F03.90 - UNSPECIFIED DEMENTIA WITHOUT BEHAVIORAL DISTURBANCE Status: Chronic (7) Gout Code(s): M10.9 - GOUT, UNSPECIFIED Status: Chronic Qualifiers: (8) HTN (hypertension) Code(s): I10 - ESSENTIAL (PRIMARY) HYPERTENSION Status: Chronic Qualifiers: (9) Pressure ulcer of ischium Code(s): L89.309 - PRESSURE ULCER OF UNSPECIFIED BUTTOCK, UNSPECIFIED STAGE Status: Chronic (10) Anemia Code(s): D64.9 - ANEMIA, UNSPECIFIED Status: Chronic - Plan cont current plan of care, continue antibiotics, manager social media * wound care with wound vac * continue IV antibiotics for now * to improve wound healing, he may need colostomy for diversion * he will need placement * nutritional support. Review of Systems - Review of Systems Eyes: negative: Pain, Vision Change, Conjunctivae Inflammation, Eyelid Inflammation, Redness, Other ENT: negative: Ear Pain, Ear Discharge, Nose Pain, Nose Discharge, Nose Congestion, Mouth Pain, Mouth Swelling, Throat Pain, Throat Swelling, Other Respiratory: negative: Cough, Dry, Shortness of Breath, Hemoptysis, SOB with Excertion, Pleuritic Pain, Sputum, Wheezing Cardiovascular: negative: chest pain, palpitations, orthopnea, paroxysmal nocturnal dyspnea, edema, light headedness, other Gastrointestinal: negative: Nausea, Vomiting, Abdominal Pain, Diarrhea, Constipation, Melena, Hematochezia, Other Genitourinary: negative: Dysuria, Frequency, Incontinence, Hematuria, Retention , Other Other: not reliable due to his level of cognitive status - Medications/Allergies Allergies/Adverse Reactions: Allergies Allergy/AdvReac Type Severity Reaction Status Date / Time No Known Drug Allergies Allergy Verified 04/16/18 22:26 Medications: Current Medications Acetaminophen (Tylenol) 650 mg PO Q4H PRN PRN Reason: Headache/Fever or Pain Last Admin: 04/18/18 20:20 Dose: 650 mg Hydrocodone Bitart/Acetaminophen ([place] 5/325) 1 tab PO Q4H PRN PRN Reason: Moderate Pain (4-6) Last Admin: 04/20/18 09:33 Dose: 1 tab Al Hydroxide/Mg Hydroxide (Maalox) 15 ml PO Q4H PRN PRN Reason: Heartburn or Indigestion Artificial Tears (Tears Naturale) 0 drop EA EYE PRN PRN PRN Reason: Dry Eyes Aspirin (Aspirin Chewable) 81 mg PO DAILY [facility] Last Admin: 04/20/18 09:32 Dose: 81 mg Dextrose/Water (Dextrose 50%) 25 gm SLOW IVP PRN PRN PRN Reason: Hypoglycemia Docusate Sodium (Colace) 100 mg PO BID [facility] Last Admin: 04/20/18 09:32 Dose: Not Given Enoxaparin Sodium (Lovenox) 40 mg SC 0900 [facility] Last Admin: 04/20/18 09:32 Dose: Not Given Famotidine (Pepcid) 20 mg PO BID [facility] Last Admin: 04/20/18 09:32 Dose: 20 mg Ferrous Sulfate (Feosol) 325 mg PO BID[facility] Last Admin: 04/20/18 09:31 Dose: 325 mg Glucagon (Glucagon) 1 mg IM PRN PRN PRN Reason: Hypoglycemia Guaifenesin (Robitussin Sf) 200 mg PO Q4H PRN PRN Reason: Cough Hydralazine HCl (Apresoline) 10 mg SLOW IVP Q4H PRN PRN Reason: Systolic BP > 180 Piperacillin Sod/Tazobactam (Sod 3.375 gm/ Sodium Chloride) 100 mls @ 200 mls/ hr IVPB Q6HR [facility] Last Admin: 04/20/18 05:06 Dose: 100 mls Dextrose/Water (D5w) 1,000 mls @ 0 mls/hr IV .Q0M PRN; As Directed PRN Reason: Hypoglycemia Potassium Chloride/Sodium Chloride (Ns 0.9% W/ 20 Meq Kcl) 1,000 ml in 1,000 mls @ 75 mls/hr IV .[id number] [facility] Last Admin: 04/20/18 05:06 Dose: 1,000 mls Vancomycin HCl 750 mg/ Sodium (Chloride) 250 mls @ 250 mls/hr IVPB Q12HR [facility] Insulin Human Lispro (Humalog) 0 units SC .MILD SLIDING SCALE PRN PRN Reason: Mild Correctional Scale Loperamide HCl (Imodium) 2 mg PO PRN PRN PRN Reason: Diarrhea/Loose Stools Loratadine (Claritin) 10 mg PO DAILYPRN PRN PRN Reason: Sinus Symptoms Magnesium Hydroxide (Milk Of Magnesium) 30 ml PO DAILYPRN PRN PRN Reason: Constipation Mineral Oil/White Petrolatum (Eucerin Cream) 0 gm TOP BIDPRN PRN PRN Reason: Dry Skin Miscellaneous Medication (Pharmacy To Dose) 1 each IVPB PRN PRN PRN Reason: Pharmacy to dose Ondansetron HCl (Zofran) 4 mg IVP Q6H PRN PRN Reason: Nausea/Vomiting Last Admin: 04/16/18 23:47 Dose: 4 mg Ondansetron HCl (Zofran Odt) 4 mg PO Q6H PRN PRN Reason: Nausea/Vomiting Phenol (Chloraseptic [place] 180 Ml Bot) 0 ml PO PRN PRN PRN Reason: Sore Throat Polyethylene Glycol (Miralax) 17 gm PO DAILY [facility] Last Admin: 04/20/18 09:32 Dose: Not Given Saccharomyces Boulardii (Florastor) 250 mg PO DAILY [facility] Last Admin: 04/20/18 09:32 Dose: 250 mg Sodium Chloride ([place] Nasal [place] 0.65%) 0 ml EA NARE QIDPRN PRN PRN Reason: Nasal Congestion Temazepam (Restoril) 15 mg PO HSPRN PRN PRN Reason: Insomnia Last Admin: 04/19/18 19:56 Dose: 15 mg
--- NOTE | 2018-04-20 10:14 | RAD ---
AP VIEW PELVIS: INDICATIONS: Right sided hip pain. COMPARISON: CT abdomen and pelvis dated 03/08/2017. FINDINGS: An IVC filter is seen to the right of midline, at L4. There are laminectomy changes at L4 and L5. N o acute fracture or subluxation is evident. Enthesopathic change is seen off the anterior pelvis and ischial tuberosity. There are scattered vascular calcifications. The visualized bowel gas pattern is unobstructed. There is a soft tissue wound VAC overlying the left greater trochanter with some as sociated subcutaneous gas overlying the left hip. IMPRESSION: 1. No acute fracture or subluxation is demonstrated. 2. Soft tissue wound overlying the left hip with associated soft tissue gas. Some of this gas may b e related to wound vacuum kit and associated sponge; however, gas from associated infection is not ex cluded. 3. Inferior vena cava filter. POS: [facility]
[2018-04-20] MEDS: Vancomycin HCl 750 MG in Sodium Chloride 0.9% 250 ML 250 ML IVPB SCH ×2 (10:37→20:04)
--- NOTE | 2018-04-20 12:35 | PRG ---
DATE OF SERVICE: 04/20/2018 Jhonny Verdin has no change in his condition. He has a wound VAC over his left hip. He has sacral decub itus bilateral medial and lateral malleolar decubitus ulcers to different degrees, right hip decubitu s, sacral decubitus. The patient has mild dementia. He has an open wound in his left hip extending down to the femur. There is irregularity of the cortical margin of the left femur. It is exposed. I have requested an MRI of the pelvis and femur. Dr. Lea has seen him. I have also requested the family come to the hospital and discuss care with the physicians. The patient remains a full code, w hich I think is inappropriate. I would like to discuss with the family options for hospice care, non operative management versus more aggressive hip disarticulation management, buttocks flap which adolfo es a high mortality of 60-80%. In his present condition, it would not improve his quality of life an d he would probably not benefit from this and it is likely that he would not survive the operation. We will wait to discuss with family treatment options. In addition, we will ask Palliative Care to s ee the patient and his family.
--- NOTE | 2018-04-20 15:09 | MRI ---
MRI OF THE PELVIS WITH AND WITHOUT CONTRAST: Date: 04/20/18 INDICATION: History of decubitus ulcer of the left femur and pelvis. FINDINGS: There is a large decubitus ulceration overlying the left greater trochanter that extends down to the lateral cortex of the left greater trochanter. There is abnormal signal and enhancement involving the left greater trochanter consistent with changes of osteomyelitis. There is a decubitus ulceration ov erlying the lower aspect of the coccyx extending into the left gluteal region without definite draina ble fluid collection or osteomyelitis of the coccyx or sacrum. There is diffuse edema involving the m usculature of the proximal pelvic girdle. Motion artifact limits detail. IMPRESSION: 1. Stage IV left hip decubitus ulceration that extends down to the lateral cortex of the left greate r trochanter. There is signal abnormality and abnormal enhancement involving the left greater trochan ter consistent with changes of osteomyelitis. 2. Superficial decubitus ulceration overlying the lower coccyx and left buttock region. 3. Nonspecific diffuse muscular edema and subcutaneous edema may reflect changes of myositis or dene rvation. POS: [facility]
--- NOTE | 2018-04-20 15:41 | ULT ---
VENOUS DUPLEX SONOGRAM RIGHT UPPER EXTREMITY: History: Right arm pain, edema. FINDINGS: Good color and spectral doppler flow are apparent within the right internal jugular and subclavian ve ins and the right brachial and cephalic veins. The axillary vein was unable to be evaluated due to pa tient contracture. Internal thrombus is apparent within most of the basilic vein with incomplete compressibility. Subcut aneous edema is also evident about the vein. IMPRESSION: Occlusive thrombus within the right basilic vein. No evidence of deep venous thrombus extension. POS: [facility]
--- NOTE | 2018-04-20 17:32 | PRG ---
DATE OF SERVICE: 04/20/2018 Jhonny Verdin is seen today and I met with his daughter. I discussed with the daughter the patient's poo r prognosis with his knee contractures, bedridden state and progressive dementia. I have talked to h er about the high mortality and morbidity of a hip disarticulation, left. We have talked about his m ultiple decubiti. The patient is in agreement that she desires DNR status. She also desires home ho spice. She does not want an operation. I agree with the choice. We will establish DNR, order hospi ce and patient is ready for discharge home anytime with hospice care. Wound care can consist of woun d VAC or saline wet-to-dry dressings. I will see him as needed this hospitalization. Please call if necessary. The patient is ready for discharge home to hospice any time.
[2018-04-20] MEDS ORDERED: Piperacillin/Tazobactam 3.375 GM, Admixture Fee 1 EACH in Sodium Chloride 0.9% 100 ML IVPB SCH (18:00)
[2018-04-20] MEDS: Piperacillin/Tazobactam 3.375 GM, Admixture Fee 1 EACH in Sodium Chloride 0.9% 100 ML IVPB SCH (21:31)
[2018-04-21] MEDS: NS 0.9% w/ 20 MEQ KCL 1,000 ML/1,000 ML BAG IV SCH ×2 (02:06→14:51)
[2018-04-21] MEDS: Piperacillin/Tazobactam 3.375 GM, Admixture Fee 1 EACH in Sodium Chloride 0.9% 100 ML IVPB SCH ×4 (02:06→20:22)
--- NOTE | 2018-04-21 08:02 | CON ---
DATE OF CONSULTATION: 04/21/2018 REQUESTING PHYSICIAN: Dr. Ryan Ferris CONSULTING PHYSICIAN: Dr. Nicanor Ronquillo REASON FOR CONSULTATION: Question of left hip exposure secondary to stage IV decubitus ulcer. HISTORY OF PRESENT ILLNESS: Jhonny is an 83-year-old male who was admitted to the [facility] 04/16/2018. The patient apparently by history is nonambulatory and he was recently dis charged from the hospital about a month ago. He spent some time I believe in a skilled facility and was ultimately transferred home. Subsequently, his decubitus ulcers have gotten much worse. The pat ient began I believe running some temperatures, therefore family brought him to the hospital where he was admitted to the Medicine Service. Dr. Ferris was originally consulted for decubitus evaluation and debridement and upon doing so, he consulted us for evaluation of the left lateral decubitus as to whether or not it violated the hip joint on the left. MRI of the pelvis has been obtained which dem onstrated erosion of the lateral thigh down to the greater trochanter with some evidence of cortical involvement suggestive of osteomyelitis, but there is no significant hip joint proper effusion or sug gestion of infection in the joint itself. PAST MEDICAL HISTORY: Diabetes type 2, which I believe is a relatively new diagnosis. Hypertension, gout and osteoarthritis. We do not know how long he has been nonambulatory as family members are no t available to me at the time of this interview. PHYSICAL EXAMINATION: GENERAL: This is an elderly male, a little confused, does not answer appropriately, but is alert and responsive. He is lying supine. EXTREMITIES: He keeps his hips flexed and abducted, attempts at moving his hips do not seem to be an incredibly painful, but he is neurovascularly intact in both lower extremities. He does not have an y evidence of a septic joint on this basic examination. Wound VACs are in place so I am not able to explore the wound today. MRI interpretation; the hip joint does not look infected itself. The lateral cortex of the greater t rochanter on the left may possibly have some osteomyelitis. IMPRESSION: 1. Elderly 83-year-old nonambulatory man, total care patient with diabetes with stage IV decubitus u lcer extending down to the lateral cortex of the greater trochanter. 2. Suggestive of osteomyelitis lateral cortex greater trochanter. PLAN: No orthopedic surgical intervention is warranted at this point. Suggest treating the osteomyel itis medically with antibiotic treatment and suppression. An extensive orthopedic exploration would probably be more than this patient could handle medically. At this point, it does not appear to be j oint involvement. We will continue to follow.
--- NOTE | 2018-04-21 08:14 | PRG ---
DATE OF SERVICE: 04/21/2018 SUBJECTIVE: The patient is awake. He is still with quite a bit of pain in the areas of debridement in the hip and presacral region. No respiratory symptoms, no vomiting, no abdominal pain. Patient i s voiding on the diaper. OBJECTIVE: VITAL SIGNS: T-max 99.3, blood pressure 100/58, pulse 87, respirations 16, O2 sat 97%. SKIN EXAM: Shows the areas of debridement, covered by negative pressure dressing. The patient has a peripheral IV access. HEENT: Ocular movements are conjugate. NECK: Supple. LUNGS: With symmetric clear breath sounds. CARDIOVASCULAR: S1 and S2, regular rate. ABDOMEN: Soft. No bladder distention. EXTREMITIES: Weakness in lower extremities as noted previously. LABORATORY DATA: White cell count last checked at 17.1, hemoglobin 9.1, platelets 420. Creatinine 0 .59. Microbiology with 2 sets of venous samples negative thus far. Does not look like cultures from the tissue were submitted. The patient had a vascular ultrasound, both upper extremities with evide nce of occlusive thrombus within the right basilic vein. No evidence of DVT. Pelvic MRI, stage 4, l eft hip decubitus ulceration extending down to the lateral cortex of the left greater trochanter and signal abnormality and abnormal enhancement involving the left greater trochanter consistent with praveen nges of osteomyelitis. Superficial decubitus ulceration of the right lower coccyx and left buttock r egion and some evidence of myositis. ASSESSMENT AND DISCUSSION: Dementia; cervical myelopathy, secondary to spinal stenosis; mobility imp airment; stage 4 decubitus; osteomyelitis, left hip; neutrophilia; and fever. Cultures were not submitted, so we will have to continue broad-spectrum coverage for the usual pathog ens isolated from this site. The cultures were submitted and they are still pending in the lab, whic h is not reported yet. He does have osteomyelitis of the left hip, and if aggressive management is c hosen by the family, then continue on either an access for administration of antimicrobial therapy. In that case, he will continue to require complex wound management. If palliative care is chosen, th en simplify the management course with transition to oral antimicrobials and simplification of wound care.
[2018-04-21] MEDS: Docusate 100 MG CAP PO SCH ×2 (08:25→20:23)
[2018-04-21] MEDS: Famotidine 20 MG TAB PO SCH ×2 (08:25→20:23)
[2018-04-21] MEDS: Ferrous Sulfate 325 MG TAB PO SCH ×2 (08:25→17:13)
[2018-04-21] MEDS: Polyethylene Glycol 3350 17 GM Packet PO SCH (08:25)
[2018-04-21] MEDS: Saccharomyces boulardii 250 MG CAP PO SCH (08:25)
[2018-04-21] MEDS: Enoxaparin Sodium 40 MG/0.4 ML SYRINGE SC SCH (08:25)
[2018-04-21] MEDS: Vancomycin HCl 750 MG in Sodium Chloride 0.9% 250 ML 250 ML IVPB SCH (10:47)
--- NOTE | 2018-04-21 11:18 | PDOC.PN ---
- Subjective Encounter Start Date: 04/21/18 Encounter Start Time: 09:10 Patient seen and examined. No overnight events pt is now DNR, daughter wanted to take him home with hospice - Objective Resuscitation Status: Resuscitation Status DNR:Do Not Resuscitate MAR Reviewed: Yes Vital Signs & Weight: Vital Signs (12 hours) Temp Pulse Resp BP Pulse Ox 04/21/18 07:50 98.1 F 80 20 121/70 98 Weight Admit Weight 153 lb 6 oz Weight 153 lb 6 oz I&O: 04/20/18 04/21/18 04/22/18 06:59 06:59 06:59 Intake Total 1200 1000 Balance 1200 1000 Result Diagrams: 04/19/18 17:47 04/19/18 06:56 Additional Labs: Accuchecks 04/21/18 04/20/18 04/20/18 05:16 20:29 16:55 POC Glucose 97 121 H 150 H 04/20/18 11:57 POC Glucose 109 Phys Exam - Physical Examination Constitutional: NAD HEENT: PERRLA, moist MMs, sclera anicteric Neck: no JVD, supple Respiratory: no wheezing, no rales, no rhonchi Cardiovascular: RRR, no significant murmur, no rub Gastrointestinal: soft, non-tender, no distention multiple pressure ulcer, wound vac+ Musculoskeletal: no edema contracture Psychiatric: normal affect Skin: no rash, normal turgor Dx/Plan (1) Severe sepsis Code(s): A41.9 - SEPSIS, UNSPECIFIED ORGANISM; R65.20 - SEVERE SEPSIS WITHOUT SEPTIC SHOCK Status: Acute Comment: due to infected decubitus ulcer (2) Pressure ulcer Code(s): L89.90 - PRESSURE ULCER OF UNSPECIFIED SITE, UNSPECIFIED STAGE Status : Acute Qualifiers: Pressure ulcer location: buttock Pressure ulcer stage: stage 4 Comment: with infection (3) Lactic acidosis Code(s): E87.2 - ACIDOSIS Status: Resolved (4) Hypokalemia Code(s): E87.6 - HYPOKALEMIA Status: Resolved (5) Cervical radiculopathy Code(s): M54.12 - RADICULOPATHY, CERVICAL REGION Status: Chronic (6) Dementia Code(s): F03.90 - UNSPECIFIED DEMENTIA WITHOUT BEHAVIORAL DISTURBANCE Status: Chronic (7) Gout Code(s): M10.9 - GOUT, UNSPECIFIED Status: Chronic Qualifiers: (8) HTN (hypertension) Code(s): I10 - ESSENTIAL (PRIMARY) HYPERTENSION Status: Chronic Qualifiers: (9) Pressure ulcer of ischium Code(s): L89.309 - PRESSURE ULCER OF UNSPECIFIED BUTTOCK, UNSPECIFIED STAGE Status: Chronic (10) Anemia Code(s): D64.9 - ANEMIA, UNSPECIFIED Status: Chronic - Plan cont current plan of care, continue antibiotics, nursing home social worker * will arrange home hospice * on discharge as per ID, augmentin and doxy * medication reviewed as below * symptomatic treatment * wound care * nutritional support * prognosis is poor. Review of Systems - Review of Systems Other: unable to review due to his cognitive status - Medications/Allergies Allergies/Adverse Reactions: Allergies Allergy/AdvReac Type Severity Reaction Status Date / Time No Known Drug Allergies Allergy Verified 04/16/18 22:26 Medications: Current Medications Acetaminophen (Tylenol) 650 mg PO Q4H PRN PRN Reason: Headache/Fever or Pain Last Admin: 04/18/18 20:20 Dose: 650 mg Hydrocodone Bitart/Acetaminophen ([place] 5/325) 1 tab PO Q4H PRN PRN Reason: Moderate Pain (4-6) Last Admin: 04/20/18 21:32 Dose: 1 tab Al Hydroxide/Mg Hydroxide (Maalox) 15 ml PO Q4H PRN PRN Reason: Heartburn or Indigestion Artificial Tears (Tears Naturale) 0 drop EA EYE PRN PRN PRN Reason: Dry Eyes Aspirin (Aspirin Chewable) 81 mg PO DAILY [facility] Last Admin: 04/21/18 08:25 Dose: 81 mg Dextrose/Water (Dextrose 50%) 25 gm SLOW IVP PRN PRN PRN Reason: Hypoglycemia Docusate Sodium (Colace) 100 mg PO BID [facility] Last Admin: 04/21/18 08:25 Dose: 100 mg Enoxaparin Sodium (Lovenox) 40 mg SC 0900 [facility] Last Admin: 04/21/18 08:25 Dose: 40 mg Famotidine (Pepcid) 20 mg PO BID [facility] Last Admin: 04/21/18 08:25 Dose: 20 mg Ferrous Sulfate (Feosol) 325 mg PO BID[facility] Last Admin: 04/21/18 08:25 Dose: 325 mg Glucagon (Glucagon) 1 mg IM PRN PRN PRN Reason: Hypoglycemia Guaifenesin (Robitussin Sf) 200 mg PO Q4H PRN PRN Reason: Cough Hydralazine HCl (Apresoline) 10 mg SLOW IVP Q4H PRN PRN Reason: Systolic BP > 180 Dextrose/Water (D5w) 1,000 mls @ 0 mls/hr IV .Q0M PRN; As Directed PRN Reason: Hypoglycemia Potassium Chloride/Sodium Chloride (Ns 0.9% W/ 20 Meq Kcl) 1,000 ml in 1,000 mls @ 75 mls/hr IV .[id number] [facility] Last Admin: 04/21/18 02:06 Dose: 1,000 mls Vancomycin HCl 750 mg/ Sodium (Chloride) 250 mls @ 250 mls/hr IVPB Q12HR [facility] Last Admin: 04/21/18 10:47 Dose: 250 mls Piperacillin Sod/Tazobactam Sod 3.375 gm/ Miscellaneous Medication 1 each/ Sodium Chloride 100 mls @ 200 mls/hr IVPB 0200,0800,1400,2000 [facility] Last Admin: 04/21/18 08:25 Dose: 100 mls Insulin Human Lispro (Humalog) 0 units SC .MILD SLIDING SCALE PRN PRN Reason: Mild Correctional Scale Loperamide HCl (Imodium) 2 mg PO PRN PRN PRN Reason: Diarrhea/Loose Stools Loratadine (Claritin) 10 mg PO DAILYPRN PRN PRN Reason: Sinus Symptoms Magnesium Hydroxide (Milk Of Magnesium) 30 ml PO DAILYPRN PRN PRN Reason: Constipation Mineral Oil/White Petrolatum (Eucerin Cream) 0 gm TOP BIDPRN PRN PRN Reason: Dry Skin Miscellaneous Medication (Pharmacy To Dose) 1 each IVPB PRN PRN PRN Reason: Pharmacy to dose Ondansetron HCl (Zofran) 4 mg IVP Q6H PRN PRN Reason: Nausea/Vomiting Last Admin: 04/16/18 23:47 Dose: 4 mg Ondansetron HCl (Zofran Odt) 4 mg PO Q6H PRN PRN Reason: Nausea/Vomiting Phenol (Chloraseptic [place] 180 Ml Bot) 0 ml PO PRN PRN PRN Reason: Sore Throat Polyethylene Glycol (Miralax) 17 gm PO DAILY [facility] Last Admin: 04/21/18 08:25 Dose: 17 gm Saccharomyces Boulardii (Florastor) 250 mg PO DAILY [facility] Last Admin: 04/21/18 08:25 Dose: 250 mg Sodium Chloride ([place] Nasal [place] 0.65%) 0 ml EA NARE QIDPRN PRN PRN Reason: Nasal Congestion Temazepam (Restoril) 15 mg PO HSPRN PRN PRN Reason: Insomnia Last Admin: 04/19/18 19:56 Dose: 15 mg
[2018-04-21] MEDS: HYDROcodone/Acetaminophen 5/325 mg Tablet PO PRN ×2 (13:43→23:29)
[2018-04-21 20:29] LABS: Vancomycin, Trough 33.5 ug/mL
[2018-04-21] MEDS ORDERED: VANCOMYCIN IVPB PRN (20:44)
[2018-04-22] MEDS: Piperacillin/Tazobactam 3.375 GM, Admixture Fee 1 EACH in Sodium Chloride 0.9% 100 ML IVPB SCH ×3 (01:51→13:01)
[2018-04-22] MEDS: NS 0.9% w/ 20 MEQ KCL 1,000 ML/1,000 ML BAG IV SCH (05:07)
[2018-04-22 07:28] VITALS: BP 126/69; TEMP 98.1
[2018-04-22] MEDS: Famotidine 20 MG TAB PO SCH (07:52)
[2018-04-22] MEDS: Ferrous Sulfate 325 MG TAB PO SCH (07:52)
[2018-04-22] MEDS: Enoxaparin Sodium 40 MG/0.4 ML SYRINGE SC SCH (07:52)
[2018-04-22] MEDS: Saccharomyces boulardii 250 MG CAP PO SCH (07:52)
[2018-04-22] MEDS: Docusate 100 MG CAP PO SCH (07:55)
[2018-04-22] MEDS: Polyethylene Glycol 3350 17 GM Packet PO SCH (07:55)
--- NOTE | 2018-04-22 11:19 | PDOC.PN ---
- Subjective Encounter Start Date: 04/22/18 Encounter Start Time: 09:30 Patient seen and examined. No new complaints. No overnight events - Objective Resuscitation Status: Resuscitation Status DNR:Do Not Resuscitate MAR Reviewed: Yes Vital Signs & Weight: Vital Signs (12 hours) Temp Pulse Resp BP Pulse Ox 04/22/18 08:00 98.1 F 82 18 04/22/18 07:26 98.1 F 82 18 126/69 90 L Weight Admit Weight 153 lb 6 oz Weight 153 lb 6 oz I&O: 04/21/18 04/22/18 04/23/18 06:59 06:59 06:59 Intake Total 1000 2534 Output Total 701 Balance 1000 1833 Result Diagrams: 04/19/18 17:47 04/19/18 06:56 Additional Labs: Accuchecks 04/22/18 04/21/18 04/21/18 05:42 19:52 16:30 POC Glucose 92 144 H 118 H 04/21/18 11:47 POC Glucose 85 Phys Exam - Physical Examination Constitutional: NAD HEENT: PERRLA, moist MMs, sclera anicteric Neck: no JVD, supple Respiratory: no wheezing, no rales, no rhonchi Cardiovascular: RRR, no significant murmur, no rub Gastrointestinal: soft, non-tender, no distention, positive bowel sounds Musculoskeletal: pulses present Psychiatric: normal affect Skin: no rash, normal turgor Deviation from normal: decubitus ulcer with wound vac Dx/Plan (1) Severe sepsis Code(s): A41.9 - SEPSIS, UNSPECIFIED ORGANISM; R65.20 - SEVERE SEPSIS WITHOUT SEPTIC SHOCK Status: Acute Comment: due to infected decubitus ulcer (2) Pressure ulcer Code(s): L89.90 - PRESSURE ULCER OF UNSPECIFIED SITE, UNSPECIFIED STAGE Status : Acute Comment: with infection (3) Lactic acidosis Code(s): E87.2 - ACIDOSIS Status: Resolved (4) Hypokalemia Code(s): E87.6 - HYPOKALEMIA Status: Resolved (5) Cervical radiculopathy Code(s): M54.12 - RADICULOPATHY, CERVICAL REGION Status: Chronic (6) Dementia Code(s): F03.90 - UNSPECIFIED DEMENTIA WITHOUT BEHAVIORAL DISTURBANCE Status: Chronic (7) Gout Code(s): M10.9 - GOUT, UNSPECIFIED Status: Chronic Qualifiers: (8) HTN (hypertension) Code(s): I10 - ESSENTIAL (PRIMARY) HYPERTENSION Status: Chronic Qualifiers: (9) Pressure ulcer of ischium Code(s): L89.309 - PRESSURE ULCER OF UNSPECIFIED BUTTOCK, UNSPECIFIED STAGE Status: Chronic (10) Anemia Code(s): D64.9 - ANEMIA, UNSPECIFIED Status: Chronic - Plan cont current plan of care, continue antibiotics, social media campaign manager * medication reviewed as below * symptomatic treatment * dc to home with home hospice. Review of Systems - Review of Systems Other: unable to review - Medications/Allergies Allergies/Adverse Reactions: Allergies Allergy/AdvReac Type Severity Reaction Status Date / Time No Known Drug Allergies Allergy Verified 04/16/18 22:26 Medications: Current Medications Acetaminophen (Tylenol) 650 mg PO Q4H PRN PRN Reason: Headache/Fever or Pain Last Admin: 04/18/18 20:20 Dose: 650 mg Hydrocodone Bitart/Acetaminophen ([place] 5/325) 1 tab PO Q4H PRN PRN Reason: Moderate Pain (4-6) Last Admin: 04/21/18 23:29 Dose: 1 tab Al Hydroxide/Mg Hydroxide (Maalox) 15 ml PO Q4H PRN PRN Reason: Heartburn or Indigestion Last Admin: 04/21/18 17:14 Dose: 15 ml Artificial Tears (Tears Naturale) 0 drop EA EYE PRN PRN PRN Reason: Dry Eyes Aspirin (Aspirin Chewable) 81 mg PO DAILY [facility] Last Admin: 04/22/18 07:52 Dose: 81 mg Dextrose/Water (Dextrose 50%) 25 gm SLOW IVP PRN PRN PRN Reason: Hypoglycemia Docusate Sodium (Colace) 100 mg PO BID [facility] Last Admin: 04/22/18 07:55 Dose: Not Given Enoxaparin Sodium (Lovenox) 40 mg SC 0900 [facility] Last Admin: 04/22/18 07:52 Dose: 40 mg Famotidine (Pepcid) 20 mg PO BID [facility] Last Admin: 04/22/18 07:52 Dose: 20 mg Ferrous Sulfate (Feosol) 325 mg PO BID-[facility] Last Admin: 04/22/18 07:52 Dose: 325 mg Glucagon (Glucagon) 1 mg IM PRN PRN PRN Reason: Hypoglycemia Guaifenesin (Robitussin Sf) 200 mg PO Q4H PRN PRN Reason: Cough Hydralazine HCl (Apresoline) 10 mg SLOW IVP Q4H PRN PRN Reason: Systolic BP > 180 Dextrose/Water (D5w) 1,000 mls @ 0 mls/hr IV .Q0M PRN; As Directed PRN Reason: Hypoglycemia Potassium Chloride/Sodium Chloride (Ns 0.9% W/ 20 Meq Kcl) 1,000 ml in 1,000 mls @ 75 mls/hr IV .[id number] [facility] Last Admin: 04/22/18 05:07 Dose: Not Given Piperacillin Sod/Tazobactam Sod 3.375 gm/ Miscellaneous Medication 1 each/ Sodium Chloride 100 mls @ 200 mls/hr IVPB 0200,0800,1400,2000 [facility] Last Admin: 04/22/18 08:39 Dose: 100 mls Insulin Human Lispro (Humalog) 0 units SC .MILD SLIDING SCALE PRN PRN Reason: Mild Correctional Scale Loperamide HCl (Imodium) 2 mg PO PRN PRN PRN Reason: Diarrhea/Loose Stools Loratadine (Claritin) 10 mg PO DAILYPRN PRN PRN Reason: Sinus Symptoms Magnesium Hydroxide (Milk Of Magnesium) 30 ml PO DAILYPRN PRN PRN Reason: Constipation Mineral Oil/White Petrolatum (Eucerin Cream) 0 gm TOP BIDPRN PRN PRN Reason: Dry Skin Miscellaneous Medication (Pharmacy To Dose) 1 each IVPB PRN PRN PRN Reason: Pharmacy to dose Ondansetron HCl (Zofran) 4 mg IVP Q6H PRN PRN Reason: Nausea/Vomiting Last Admin: 04/16/18 23:47 Dose: 4 mg Ondansetron HCl (Zofran Odt) 4 mg PO Q6H PRN PRN Reason: Nausea/Vomiting Phenol (Chloraseptic [place] 180 Ml Bot) 0 ml PO PRN PRN PRN Reason: Sore Throat Polyethylene Glycol (Miralax) 17 gm PO DAILY [facility] Last Admin: 04/22/18 07:55 Dose: Not Given Saccharomyces Boulardii (Florastor) 250 mg PO DAILY [facility] Last Admin: 04/22/18 07:52 Dose: 250 mg Sodium Chloride ([employer] Nasal [place] 0.65%) 0 ml EA NARE QIDPRN PRN PRN Reason: Nasal Congestion Temazepam (Restoril) 15 mg PO HSPRN PRN PRN Reason: Insomnia Last Admin: 04/19/18 19:56 Dose: 15 mg
--- NOTE | 2018-04-22 12:59 | DIS ---
PRIMARY CARE PHYSICIAN: [facility] DATE OF ADMISSION: 04/16/2018 DATE OF DISCHARGE: 04/22/2018 DISCHARGE DISPOSITION: Home with home hospice. PRIMARY DISCHARGE DIAGNOSES: 1. Stage IV decubitus ulcer infected, complicated by osteomyelitis of left greater trochanter. 2. Severe sepsis. 3. Symptomatic anemia, required transfusion. 4. Thrombosis of right basilic vein. 5. Hypokalemia. 6. Lactic acidosis. SECONDARY DISCHARGE DIAGNOSES: Dementia, cervical radiculopathy, gout, hypertension, physical decond itioning and bed bound status, anemia of chronic disease. PRIMARY PROCEDURE/OPERATION: Debridement by Dr. Ferris. RADIOLOGICAL INVESTIGATION: MRI pelvis. x-ray of pelvis consistent with osteomyelitis of left greate r trochanter. Ultrasound was positive for thrombosis of right basilic vein. SIGNIFICANT LABORATORY DATA: Hemoglobin 9.5, creatinine 0.59. CRP 10.71. Culture negative. DISCHARGE MEDICATIONS: Augmentin 875 mg p.o. b.i.d. for 15 days, doxycycline 100 mg p.o. b.i.d. for 15 days, aspirin 81 mg p.o. daily, colchicine 0.6 mg p.o. b.i.d., Colace 100 mg p.o. b.i.d., lisinopr il 10 mg p.o. daily, metformin 500 mg p.o. daily, metoprolol with hydrochlorothiazide 1 tablet p.o. d aily, Florastor 250 mg p.o. daily. CONTRAINDICATIONS: None. CODE STATUS: DNR. INPATIENT CONSULTANTS: Dr. Ferris was following while in hospital. Dr. Lea was following while in hospital. Orthopedic physician was consulted while in hospital. TEST RESULTS PENDING ON DISCHARGE: None. ALLERGIES: No known drug allergy. DISCHARGE PLAN: Post hospital, the patient will follow up with primary care physician. The patient is discharged home with home hospice. HOSPITAL COURSE: An 83-year-old male who has bedbound status. He was admitted by Dr. Indio mills. Please see his H&P for further details. The patient was having stage IV decubitus ulcer. It was infected and that is why we admitted him on medical floor. He was septic. He was dehydrated. He w as given IV fluid. He was treated with vancomycin and Zosyn. His culture remained negative. He req uired 1 unit of blood transfusion for low hemoglobin. We consulted Dr. Ferris for debridement. The patient required wound VAC while in hospital. This patient's wound is closed pretty much complicated and he has several decubitus ulcers because of his bedbound status. We did an MRI of pelvis and it showed osteomyelitis of left greater trochanter. Orthopedic saw this patient. At this point that th is patient's long-term prognosis is very poor. Palliative Care was consulted and family made him DNR and they decided to take him home with home hospice. At this point, because the patient is planned for comfort care, we changed antibiotic to oral antibio tic therapy. The patient is seen and examined at bedside today. Please see my progress note from today for furthe r detail. The patient is medically stable for discharge.
== END 2018-04-22 14:29 | disposition hospice, home (50) | DRG 853 ==
LOC: ERS 15:25 → T4-B 17:55
PROVIDERS: ADMIT Family Medicine; ATTEND Family Medicine
PROC: 0JBM0ZZ Excision of Left Upper Leg Subcutaneous Tissue and Fascia, Open Approach (ICD-10-PCS; principal; 2018-04-19)
PROC: 0JB70ZZ Excision of Back Subcutaneous Tissue and Fascia, Open Approach (ICD-10-PCS; 2018-04-19)
PROC: 2W1MX6Z Compression of Left Lower Extremity using Pressure Dressing (ICD-10-PCS; 2018-04-19)
DX: A41.9 Sepsis, unspecified organism (principal); L89.224 Pressure ulcer of left hip, stage 4; L89.324 Pressure ulcer of left buttock, stage 4; L89.153 Pressure ulcer of sacral region, stage 3; L89.213 Pressure ulcer of right hip, stage 3; L89.523 Pressure ulcer of left ankle, stage 3; E87.2 Acidosis; M50.00 Cervical disc disorder with myelopathy, unspecified cervical region; I82.611 Acute embolism and thrombosis of superficial veins of right upper extremity; M86.8X5 Other osteomyelitis, thigh; Z66 Do not resuscitate; Z51.5 Encounter for palliative care; L89.892 Pressure ulcer of other site, stage 2; I49.3 Ventricular premature depolarization; I10 Essential (primary) hypertension; M19.90 Unspecified osteoarthritis, unspecified site; E11.69 Type 2 diabetes mellitus with other specified complication; M54.12 Radiculopathy, cervical region; M10.9 Gout, unspecified; L89.619 Pressure ulcer of right heel, unspecified stage; R65.20 Severe sepsis without septic shock; E87.6 Hypokalemia; R20.2 Paresthesia of skin; F03.90 Unspecified dementia, unspecified severity, without behavioral disturbance, psychotic disturbance, mood disturbance, and anxiety; M24.562 Contracture, left knee; M24.561 Contracture, right knee; E86.0 Dehydration; E11.65 Type 2 diabetes mellitus with hyperglycemia; D50.9 Iron deficiency anemia, unspecified; Z74.01 Bed confinement status; Z79.899 Other long term (current) drug therapy; Z79.82 Long term (current) use of aspirin; Z79.84 Long term (current) use of oral hypoglycemic drugs; Z91.81 History of falling; Z90.49 Acquired absence of other specified parts of digestive tract; Z82.49 Family history of ischemic heart disease and other diseases of the circulatory system
CPT/HCPCS: 36415; 36416; 36430; 72170; 72197; 80048; 80053; 80202; 82274; 82533; 82728; 83540; 83550; 83605; 84550; 85025; 85652; 86140; 86850; 86900; 86901; 87040; 90471; 90670; 93005; 96361; 96365; 96367; G0009; J1650; J2270; J2405; J2543; J3370; J7050; P9016